=== PATIENT | male | born 1935 | race Caucasian/White ===

== ENCOUNTER 2017-05-12 10:56 | Observation (INO) | payer MEDICARE, OTHER ==
[2017-05-12] MEDS ORDERED: Sodium Chloride 0.9% 10 ML Syringe FLUSH PRN (11:06)
[2017-05-12] MEDS ORDERED: Temazepam 15 MG Cap PO PRN (11:06)
[2017-05-12 11:37] LABS: CHLORIDE,CL 105 mEq/L (98-106); SODIUM,NA 141 mEq/L (136-145)
[2017-05-12] MEDS ORDERED: LORazepam 0.5 MG Tab PO PRN (12:45)
[2017-05-12] MEDS: LEVODOPA PO SCH ×2 (14:00→19:39)
[2017-05-12] MEDS: CARBIDOPA PO SCH ×2 (14:00→19:39)
[2017-05-12] MEDS: cefTRIAXone 1 GM Vial IVPUSH SCH (17:26)
[2017-05-12] MEDS: MEMANTINE HCL 28 MG PO SCH (19:37)
[2017-05-12] MEDS: AMLODIPINE 5 MG PO SCH (19:38)
[2017-05-12] MEDS: MIRTAZAPINE 15 MG PO SCH (19:38)
[2017-05-12] MEDS: SIMVASTATIN 80 MG PO SCH (19:39)
[2017-05-12] MEDS: ALLOPURINOL 100 MG PO SCH (19:40)
[2017-05-12] MEDS: ACLIDINIUM BROMIDE INH SCH (19:42)
[2017-05-12] MEDS: BUDESONIDE INH SCH (19:43)
[2017-05-12] MEDS: FORMOTEROL INH SCH (19:43)
[2017-05-12] MEDS ORDERED: Formoterol/Mometasone 100-5 MCG 8.8 GM Inhaler IH SCH (20:00)
[2017-05-13] MEDS: PANTOPRAZOLE 40 MG PO SCH (06:51)
[2017-05-13] MEDS: ACLIDINIUM BROMIDE INH SCH ×2 (07:44→19:35)
[2017-05-13] MEDS: LOSARTAN 25 MG PO SCH (07:45)
[2017-05-13] MEDS: ASPIRIN 81 MG PO SCH (07:45)
[2017-05-13] MEDS: LEVODOPA PO SCH ×3 (07:46→19:37)
[2017-05-13] MEDS: DONEPEZIL 10 MG PO SCH (07:46)
[2017-05-13] MEDS: CARBIDOPA PO SCH ×3 (07:46→19:37)
[2017-05-13] MEDS: Multivitamin Tab PO SCH (07:56)
[2017-05-13] MEDS: Sodium Chloride 0.9% 1,000 ML IV SCH ×2 (08:30→22:17)
[2017-05-13] MEDS ORDERED: ACETAMINOPHEN 500 MG PO PRN (10:50)
--- NOTE | 2017-05-13 14:58 | PCM.PN ---
- General Info Date of Service: 05/13/17 Admission Dx/Problem (Free Text): Weakness UTI Functional Status: Reports: Tolerating Diet. Denies: Pain Controlled, Ambulating - Review of Systems General: Reports: Weakness, Fatigue, Malaise. Denies: Fever HEENT: Reports: No Symptoms Pulmonary: Denies: Shortness of Breath, Cough, Wheezing Cardiovascular: Denies: Chest Pain, Edema, Lightheadedness Gastrointestinal: Denies: Abdominal Pain, Nausea, Vomiting Genitourinary: Reports: Urgency, Incontinence Musculoskeletal: Reports: Other (weakness) Skin: Reports: No Symptoms Neurological: Reports: Weakness - Patient Data Vitals - Most Recent: Last Vital Signs Temp 98.2 F 05/13/17 12:00 Pulse 66 05/13/17 12:00 Resp 16 05/13/17 12:00 BP 122/44 L 05/13/17 12:00 Pulse Ox 95 05/13/17 12:00 Weight - Most Recent: 228 lb 3.2 oz Lab Results Last 24 Hours: Laboratory Results - last 24 hr 05/12/17 05/12/17 05/13/17 Range/Units 17:21 19:50 07:49 POC Glucose 208 H 199 H 170 H (75-105) mg/dl Brent Results Last 24 Hours: Microbiology 05/12/17 13:45 Urine Culture - Preliminary Urine, Voided Gram Negative Rods Med Orders - Current: Current Medications Acetaminophen (Tylenol Extra Strength) 1,000 mg PO Q6H PRN PRN Reason: Pain Allopurinol (Zyloprim) 100 mg PO BEDTIME [facility] Last Admin: 05/12/17 19:40 Dose: 100 mg Aspirin (Halfprin) 81 mg PO DAILY [facility] Last Admin: 05/13/17 07:45 Dose: 81 mg Carbidopa/Levodopa (Sinemet 25-100 Mg) 1 tab PO TID [facility] Last Admin: 05/13/17 14:32 Dose: 1 tab Ceftriaxone Sodium (Rocephin) 1 gm IVPUSH Q24H [facility] Last Admin: 05/12/17 17:26 Dose: 1 gm Sodium Chloride (Normal Saline) 1,000 mls @ 75 mls/hr IV ASDIRECTED [facility] Last Admin: 05/13/17 08:30 Dose: 75 mls/hr Lorazepam (Ativan) 0.5 mg PO BID PRN PRN Reason: Anxiety Losartan Potassium (Cozaar) 50 mg PO DAILY [facility] Last Admin: 05/13/17 07:45 Dose: 50 mg Mirtazapine (Remeron) 15 mg PO BEDTIME [facility] Last Admin: 05/12/17 19:38 Dose: 15 mg Multivitamins/Minerals/Vitamin C (Tab-A-Gela) 1 tab PO DAILY [facility] Last Admin: 05/13/17 07:56 Dose: 1 tab Ptom - Aclidinium Sunflower [Tudorza Pressair] 1 Puff 1 puff INH BID [facility] Last Admin: 05/13/17 07:44 Dose: 1 puff Ptom - Amlodipine 5 (Mg Tab) 5 each PO BEDTIME [facility] Last Admin: 05/12/17 19:38 Dose: 5 each Ptom - Donepezil 10 (Mg Tab) 10 each PO DAILY [facility] Last Admin: 05/13/17 07:46 Dose: 10 each Ptom - Budesonide /Formoterol 160 Mcg/4 .5mcg Inh 1 each INH BEDTIME [facility] Last Admin: 05/12/17 19:43 Dose: 1 each Ptom - Memantine Hcl ([Namenda Xr] 28 Mg) 28 mg PO BEDTIME [facility] Last Admin: 05/12/17 19:37 Dose: 28 mg Pantoprazole Sodium (Protonix) 40 mg PO ACBREAKFAST [facility] Last Admin: 05/13/17 06:51 Dose: 40 mg Simvastatin (Zocor) 80 mg PO BEDTIME [facility] Last Admin: 05/12/17 19:39 Dose: 80 mg Sodium Chloride (Saline Flush) 10 ml FLUSH ASDIRECTED PRN PRN Reason: Keep Vein Open Temazepam (Restoril) 15 mg PO BEDTIME PRN PRN Reason: Sleep Discontinued Medications Mometasone Furoate/Formoterol Fumar (Dulera 100-5 Mcg) 2 puff IH BID NAV - Exam General: Alert, Oriented (oriented to person and place), Cooperative HEENT: Mucous Membr. Moist/Protection Neck: Supple Lungs: Normal Respiratory Effort, Wheezing (fine wheezing noted) Cardiovascular: Regular Rate, Regular Rhythm GI/Abdominal Exam: Normal Bowel Sounds, Soft, Non-Tender Extremities: No Pedal Edema Skin: Warm, Dry Neurological: No New Focal Deficit - Problem List & Annotations (1) Weakness SNOMED Code(s): 94578611 Code(s): R53.1 - WEAKNESS Status: Acute Priority: High Current Visit: Yes (2) UTI (urinary tract infection) SNOMED Code(s): 64602779 Code(s): N39.0 - URINARY TRACT INFECTION, SITE NOT SPECIFIED Status: Acute Priority: High Current Visit: Yes Onset Date: ~01/26/16 Qualifiers: - Problem List Review Problem List Initiated/Reviewed/Updated: Yes - My Orders Last 24 Hours: My Active Orders 05/13/17 10:50 Acetaminophen [Tylenol Extra Strength] 1,000 mg PO Q6H PRN 05/14/17 05:11 BASIC METABOLIC PANEL,BMP [CHEM] AM - Assessment Assessment:: UTI Weakness - Plan Plan:: Patient states is feeling okay today. Denies shortness of breath or chest pain. Cardiac work up done on admit due to palpitations and weakness was negative. Was found to have UTI and started on Rocephin. Patient states he does have urgency and as a result is incontinent at times. Minimal cough. Afebrile. Oxygen sats are adequate. Creatinine was higher than his usual at 1.9. IV fluids started due to dehydration. Continue Rocephin. Tylenol for discomfort versus his tramadol at this time due to increase in creatinine. Possible discharge home on antibiotics tomorrow.
[2017-05-13] MEDS: cefTRIAXone 1 GM Vial IVPUSH SCH (16:53)
[2017-05-13] MEDS: BUDESONIDE INH SCH (19:36)
[2017-05-13] MEDS: FORMOTEROL INH SCH (19:36)
[2017-05-13] MEDS: AMLODIPINE 5 MG PO SCH (19:36)
[2017-05-13] MEDS: MEMANTINE HCL 28 MG PO SCH (19:36)
[2017-05-13] MEDS: MIRTAZAPINE 15 MG PO SCH (19:37)
[2017-05-13] MEDS: ALLOPURINOL 100 MG PO SCH (19:38)
[2017-05-13] MEDS: SIMVASTATIN 80 MG PO SCH (19:41)
[2017-05-14] MEDS: PANTOPRAZOLE 40 MG PO SCH (06:07)
[2017-05-14] MEDS: ACLIDINIUM BROMIDE INH SCH (07:36)
[2017-05-14] MEDS: ASPIRIN 81 MG PO SCH (07:37)
[2017-05-14] MEDS: LEVODOPA PO SCH (07:37)
[2017-05-14] MEDS: CARBIDOPA PO SCH (07:37)
[2017-05-14] MEDS: DONEPEZIL 10 MG PO SCH (07:37)
[2017-05-14] MEDS: LOSARTAN 25 MG PO SCH (07:39)
[2017-05-14] MEDS: Multivitamin Tab PO SCH (07:39)
[2017-05-14 07:42] VITALS: BP 139/36
--- NOTE | 2017-05-18 09:42 | PCM.DCSUM1 ---
Discharge Summary - Hospital Course Free Text/Narrative:: Patient admitted by Dr. Curry with palpitations and weakness. Had been seen by the home health nurse and was concerned about his pulse. Patient had an episode that felt like electricity going through his body. Was admitted to rule out any cardiac events and monitor telemetry. Initial labs showed a normal WBC at 7.7, hemoglobin at 15.5. Creatinine elevated from his norm at 1.9. Cardiac enzymes negative. UA was positive. Started on Rocephin and IV fluids. - Discharge Data Discharge Date: 05/14/17 Discharge Disposition: Home, Self-Care 01 Condition: Good - Discharge Diagnosis/Problem(s) (1) Weakness SNOMED Code(s): 24800131 ICD Code: R53.1 - WEAKNESS Status: Acute Priority: High (2) UTI (urinary tract infection) SNOMED Code(s): 18240172 ICD Code: N39.0 - URINARY TRACT INFECTION, SITE NOT SPECIFIED Status: Acute Priority: High Onset Date: ~01/26/16 Qualifiers: - Patient Summary/Data Complications: none Hospital Course: Patient did well during hospital stay. Cardiac enzymes remained negative. Creatinine improved to 1.5 after IV fluids. Feels stronger after IV fluids and antibiotics, ambulating with standby assist. Afebrile. Will discharge home on Ceftin. - Patient Instructions Diet: Diabetic Diet Activity: As Tolerated - Discharge Plan Prescriptions/Med Rec: Cefuroxime Axetil [Cefuroxime] 250 mg PO BID #20 tablet Home Medications: Home Meds Acetaminophen [Tylenol Extra Strength] 500 mg PO Q4H PRN 09/21/14 [History] Allopurinol [Zyloprim] 100 mg PO BEDTIME 09/21/14 [History] Donepezil HCl 10 mg PO DAILY 09/21/14 [History] LORazepam [Ativan] 0.5 mg PO BID PRN 09/21/14 [History] Simvastatin 80 mg PO BEDTIME 09/21/14 [History] Fluticasone Propionate [Flovent] 2 spray ASTER BEDTIME 09/18/15 [History] Sodium Chloride [Saline Nasal [place]] 1 spray ASTER ASDIRECTED PRN 09/18/15 [ History] amLODIPine [Norvasc] 5 mg PO BEDTIME 09/18/15 [History] Aspirin [Ecotrin] 81 mg PO DAILY #30 tablet. 09/20/15 [Rx] Pantoprazole [ProTONIX] 40 mg PO ACBREAKFAST #45 tab.cr 09/20/15 [Rx] Memantine HCl [Namenda Xr] 28 mg PO BEDTIME 02/02/16 [History] traMADol [Ultram] 50 mg PO Q6H #60 tablet 02/05/16 [Rx] Aclidinium [place] [Tudorza Pressair] 1 puff INH DAILY 05/12/17 [History] Budesonide/Formoterol Fumarate [Symbicort 160-4.5 Mcg Inhaler] 1 puff INH BID [History] Carbidopa/Levodopa [Carbidopa-Levo 25-100 MG ODT] 1 tab PO TID 05/12/17 [History ] Losartan [Cozaar] 50 mg PO DAILY 05/12/17 [History] Mirtazapine 15 mg PO BEDTIME 05/12/17 [History] Cefuroxime Axetil [Cefuroxime] 250 mg PO BID #20 tablet 05/14/17 [Rx] Patient Handouts: Urinary Tract Infection, Adult Referrals: Chance Curry MD [Primary Care Provider] - (Follow up with Dr. Curry in one week. CBC, BMP, A1C prior to visit) - Discharge Summary/Plan Comment DC Time >30 min.: No Discharge Summary/Plan Comment: Discharge home on Ceftin. Follow up with Dr. Curry in one week. - General Info Date of Service: 05/14/17 Admission Dx/Problem (Free Text: Weakness UTI Functional Status: Reports: Pain Controlled, Tolerating Diet, Ambulating - Review of Systems General: Reports: Fatigue. Denies: Fever, Weakness HEENT: Reports: No Symptoms Pulmonary: Denies: Shortness of Breath, Cough, Wheezing Cardiovascular: Denies: Chest Pain, Edema, Lightheadedness Gastrointestinal: Denies: Abdominal Pain, Nausea, Vomiting Genitourinary: Reports: No Symptoms Musculoskeletal: Reports: No Symptoms Skin: Reports: No Symptoms Neurological: Reports: Weakness - Patient Data Vitals - Most Recent: Last Vital Signs Temp 96.9 F 05/14/17 07:42 Pulse 63 05/14/17 07:42 Resp 20 05/14/17 07:42 BP 139/36 L 05/14/17 07:42 Pulse Ox 93 L 05/14/17 07:42 Weight - Most Recent: 228 lb 3.2 oz Med Orders - Current: Current Medications Discontinued Medications Acetaminophen (Tylenol Extra Strength) 1,000 mg PO Q6H PRN PRN Reason: Pain Last Admin: 05/13/17 11:30 Dose: 1,000 mg Allopurinol (Zyloprim) 100 mg PO BEDTIME [facility] Last Admin: 05/13/17 19:38 Dose: 100 mg Aspirin (Halfprin) 81 mg PO DAILY [facility] Last Admin: 05/14/17 07:37 Dose: 81 mg Carbidopa/Levodopa (Sinemet 25-100 Mg) 1 tab PO TID [facility] Last Admin: 05/14/17 07:37 Dose: 1 tab Ceftriaxone Sodium (Rocephin) 1 gm IVPUSH Q24H [facility] Last Admin: 05/13/17 16:53 Dose: 1 gm Sodium Chloride (Normal Saline) 1,000 mls @ 75 mls/hr IV ASDIRECTED [facility] Last Admin: 05/13/17 22:17 Dose: 75 mls/hr Lorazepam (Ativan) 0.5 mg PO BID PRN PRN Reason: Anxiety Losartan Potassium (Cozaar) 50 mg PO DAILY [facility] Last Admin: 05/14/17 07:39 Dose: 50 mg Mirtazapine (Remeron) 15 mg PO BEDTIME [facility] Last Admin: 05/13/17 19:37 Dose: 15 mg Mometasone Furoate/Formoterol Fumar (Dulera 100-5 Mcg) 2 puff IH BID [facility] Multivitamins/Minerals/Vitamin C (Tab-A-Gela) 1 tab PO DAILY [facility] Last Admin: 05/14/17 07:39 Dose: 1 tab Ptom - Aclidinium [place] [Tudorza Pressair] 1 Puff 1 puff INH BID [facility] Last Admin: 05/14/17 07:36 Dose: 1 puff Ptom - Amlodipine 5 (Mg Tab) 5 each PO BEDTIME [facility] Last Admin: 05/13/17 19:36 Dose: 5 each Ptom - Donepezil 10 (Mg Tab) 10 each PO DAILY [facility] Last Admin: 05/14/17 07:37 Dose: 10 each Ptom - Budesonide /Formoterol 160 Mcg/4 .5mcg Inh 1 each INH BEDTIME [facility] Last Admin: 01/17/18 19:36 Dose: 1 each Ptom - Memantine Hcl ([Namenda Xr] 28 Mg) 28 mg PO BEDTIME [facility] Last Admin: 05/13/17 19:36 Dose: 28 mg Pantoprazole Sodium (Protonix) 40 mg PO ACBREAKFAST [facility] Last Admin: 05/14/17 06:07 Dose: 40 mg Simvastatin (Zocor) 80 mg PO BEDTIME [facility] Last Admin: 05/13/17 19:41 Dose: 80 mg Sodium Chloride (Saline Flush) 10 ml FLUSH ASDIRECTED PRN PRN Reason: Keep Vein Open Temazepam (Restoril) 15 mg PO BEDTIME PRN PRN Reason: Sleep - Exam General: Reports: Alert, Oriented HEENT: Reports: Mucous Membr. Moist/[place] Neck: Reports: Supple Lungs: Reports: Clear to Auscultation, Normal Respiratory Effort Cardiovascular: Reports: Regular Rate, Regular Rhythm GI/Abdominal Exam: Normal Bowel Sounds, Soft, Non-Tender Extremities: Normal Inspection, No Pedal Edema Skin: Reports: Warm, Dry Neurological: Reports: No New Focal Deficit *Q Meaningful Use (DIS) - VTE *Q VTE Criteria *Q: - Stroke *Q Stroke Criteria *Q: - AMI *Q AMI Criteria *Q:
== END 2017-05-14 10:00 | disposition home or self-care (01) ==
LOC: CC.MS 10:56
PROVIDERS: ADMIT Family Medicine; ATTEND Family Medicine
DX: R53.1 Weakness (principal); N39.0 Urinary tract infection, site not specified; J44.9 Chronic obstructive pulmonary disease, unspecified; F32.9 Major depressive disorder, single episode, unspecified; K21.9 Gastro-esophageal reflux disease without esophagitis; I10 Essential (primary) hypertension; E78.5 Hyperlipidemia, unspecified; G47.33 Obstructive sleep apnea (adult) (pediatric); Z79.82 Long term (current) use of aspirin; Z79.899 Other long term (current) drug therapy; Z87.891 Personal history of nicotine dependence
CPT/HCPCS: 36415; 71046; 80048; 81001; 82962; 84484; 85025; 86140; 87086; 87088; 87186; 93005; A9270; J0696; J7030; 93010; 96361; 96374; 96375; 96376; 99217; 99220; 99225; G0378

== ENCOUNTER 2018-03-03 08:55 | Inpatient (IN) | payer MEDICARE, MEDICAID ==
[2018-03-03] MEDS ORDERED: Acetaminophen 325 MG Tab PO PRN (13:28)
[2018-03-03] MEDS ORDERED: Ondansetron 4 MG/2 ML SDV IV PRN (13:28)
[2018-03-03] MEDS ORDERED: Docusate Sodium 100 MG Cap PO PRN (13:28)
[2018-03-03] MEDS ORDERED: Ondansetron 4 MG Tab.DIS PO PRN (13:28)
[2018-03-03] MEDS ORDERED: LORazepam 0.5 MG Tab PO PRN (13:35)
[2018-03-03] MEDS ORDERED: traMADol 50 MG Tab PO PRN (13:35)
[2018-03-03] MEDS: Levofloxacin/Dextrose 5%-Water 500 MG in Premix Bag 1 BAG IV SCH (15:52)
[2018-03-03] MEDS: Enoxaparin 30 MG/0.3 ML Syringe SUBCUT SCH (15:56)
[2018-03-03] MEDS: Carbidopa/Levodopa 25-100 MG Tab PO SCH ×2 (16:21→20:16)
[2018-03-03] MEDS: Sodium Chloride 0.9% 1,000 ML IV SCH (16:42)
[2018-03-03] MEDS: Fluticasone Propionate Nasal Spray 16 GM Bottle NAS SCH (20:10)
[2018-03-03] MEDS: Formoterol/Mometasone 200-5 MCG 8.8 GM Inhaler IH SCH (20:11)
[2018-03-03] MEDS: Memantine 10 MG Tab PO SCH (20:12)
[2018-03-03] MEDS: Mirtazapine 15 MG Tab PO SCH (20:12)
[2018-03-03] MEDS: Simvastatin 40 MG Tab PO SCH (20:12)
[2018-03-03] MEDS: Insulin Glarg,Human.Rec.Analog 100 UNIT/ML ML SUBCUT SCH (20:23)
[2018-03-04] MEDS: Sodium Chloride 0.9% 1,000 ML IV SCH ×3 (02:41→23:26)
[2018-03-04] MEDS: Pantoprazole 40 MG Tab.CR PO SCH (06:36)
[2018-03-04] MEDS: Carbidopa/Levodopa 25-100 MG Tab PO SCH ×3 (07:40→19:43)
[2018-03-04] MEDS: Aspirin 81 MG Tab.EC PO SCH (07:40)
[2018-03-04] MEDS: Donepezil 5 MG Tab PO SCH (07:40)
[2018-03-04] MEDS: Formoterol/Mometasone 200-5 MCG 8.8 GM Inhaler IH SCH ×2 (07:41→19:41)
--- NOTE | 2018-03-04 07:46 | EDM.PDOC ---
ED HPI GENERAL MEDICAL PROBLEM - General Chief Complaint: General Stated Complaint: WEAK Time Seen by Provider: 03/03/18 09:25 Source of Information: Reports: Patient, Family History Limitations: Reports: No Limitations - History of Present Illness INITIAL COMMENTS - FREE TEXT/NARRATIVE: Humphrey is an 83 yo male who presents to the ED via [facility] d/t weakness. states he has been getting weak this last week and hasn't been able to walk much anymore. She states it is hard for her to get him up and help take care of him. He used to be able to ambulate with a walker at home but hasn' t been able to do this anymore. She states he is oxygen dependant at home. He was suppose to see Dr. Curry this morning in clinic but were unable to get him up and get him ready. He does have an indwelling catheter, which he has had for the last 9 months and usually will be changed monthly by home health. She admits it hasn't been changed this month yet. Duration: Getting Worse Location: Reports: Generalized - Related Data Allergies Allergy/AdvReac Type Severity Reaction Status Date / Time No Known Allergies Allergy Verified 03/03/18 09:00 Home Meds: Home Meds Acetaminophen [Tylenol Extra Strength] 500 mg PO Q4H PRN 09/21/14 [History] Donepezil HCl 10 mg PO BEDTIME 09/21/14 [History] LORazepam [Ativan] 0.5 mg PO Q6HR PRN 09/21/14 [History] Simvastatin 40 mg PO BEDTIME 09/21/14 [History] Fluticasone Propionate [Flovent] 2 spray SATER BEDTIME 09/18/15 [History] Aspirin [Ecotrin] 81 mg PO DAILY #30 tablet. 09/20/15 [Rx] Pantoprazole [ProTONIX] 40 mg PO ACBREAKFAST #45 tab.cr 09/20/15 [Rx] Memantine HCl [Namenda Xr] 28 mg PO BEDTIME 02/02/16 [History] Aclidinium [place] [Tudorza Pressair] 1 puff INH DAILY 05/12/17 [History] Budesonide/Formoterol Fumarate [Symbicort 160-4.5 Mcg Inhaler] 1 puff INH BID [History] Carbidopa/Levodopa [Carbidopa-Levo 25-100 MG ODT] 2 tab PO TID 05/12/17 [History ] Mirtazapine 15 mg PO BEDTIME 05/12/17 [History] Insulin Glarg,Human.Rec.Analog [Lantus] 25 unit SQ BEDTIME 06/26/17 [History] Allopurinol [Zyloprim] 100 mg PO DAILY 03/03/18 [History] Losartan Potassium 50 mg PO DAILY 03/03/18 [History] Multivitamin [Multivitamins] 1 tab PO DAILY 03/03/18 [History] Tamsulosin HCl 1 cap PO DAILY 03/03/18 [History] guaiFENesin [Guaifenesin] 3 tab PO DAILY 03/03/18 [History] traMADol [Ultram] 50 mg PO Q6H PRN 03/03/18 [History] Past Medical History HEENT History: Reports: Cataract, Hard of Hearing Cardiovascular History: Reports: Bypass, CAD, High Cholesterol, Hypertension, SOB on Exertion Other Cardiovascular History: Triple bypass in about 2009 Respiratory History: Reports: COPD, Sleep Apnea Other Respiratory History: Uses CPAP (no O2) at night; ANANT Genitourinary History: Reports: Retention, Urinary, Urinary Incontinence, Other (See Below) Other Genitourinary History: overactive bladder. Musculoskeletal History: Reports: Arthritis, Gout, Other (See Below) Other Musculoskeletal History: Joint pain and gout (per clinic records) Neurological History: Reports: Alzheimers Disease, Parkinson's Psychiatric History: Reports: Anxiety, Dementia Other Psychiatric History: h/o anxiety and dementia (per clinic records) Oncologic (Cancer) History: Reports: Prostate - Past Surgical History HEENT Surgical History: Reports: Cataract Surgery, Tonsillectomy Cardiovascular Surgical History: Reports: Coronary Artery Bypass GI Surgical History: Reports: Colonoscopy Other GI Surgeries/Procedures: Colonoscopy in 2010 Social & Family History - Family History Family Medical History: Noncontributory - Tobacco Use Smoking Status *Q: Current Every Day Smoker Years of Tobacco use: 75 Packs/Tins Daily: 0.1 - Caffeine Use Caffeine Use: Reports: None - Recreational Drug Use Recreational Drug Use: No ED ROS GENERAL - Review of Systems Review Of Systems: See Below Constitutional: Reports: Weakness, Fatigue. Denies: Fever, Chills, Weight Loss HEENT: Reports: No Symptoms Respiratory: Reports: Shortness of Breath (chronic). Denies: Wheezing, Cough Cardiovascular: Reports: Dyspnea on Exertion. Denies: Chest Pain, Palpitations , Syncope GI/Abdominal: Reports: Constipation. Denies: Abdominal Pain, Diarrhea, Nausea, Vomiting : Reports: No Symptoms (indwelling catheter) Skin: Reports: No Symptoms Neurological: Reports: Confusion, Difficulty Walking, Weakness. Denies: Headache, Numbness, Syncope, Tingling ED EXAM, GENERAL - Physical Exam Exam: See Below Exam Limited By: No Limitations General Appearance: Alert, Other (strong foul urine odor upon entering room) Eye Exam: Bilateral Eye: EOMI, PERRL Ears: Normal External Exam, Normal Canal, Hearing Grossly Normal, Normal TMs Nose: Normal Inspection, Normal Mucosa, No Blood Throat/Mouth: Normal Inspection, Normal Lips, Normal Gums, Normal Oropharynx, Normal Voice, No Airway Compromise Head: Atraumatic, Normocephalic Neck: Normal Inspection, Supple Respiratory/Chest: Decreased Breath Sounds. No: Respiratory Distress, Crackles , Rales, Rhonchi, Wheezing Cardiovascular: Regular Rate, Rhythm, No Edema, No Murmur GI/Abdominal: Normal Bowel Sounds, Soft, Non-Tender, No Organomegaly, No Mass (Male) Exam: Other (indwelling catheter) Extremities: Normal Inspection, No Pedal Edema Neurological: Alert, Oriented, Normal Cognition, No Motor/Sensory Deficits Psychiatric: Normal Affect, Normal Mood Skin Exam: Warm, Dry, Intact, Normal Color, No Rash EKG INTERPRETATION EKG Date: 03/03/18 Rhythm: NSR Comparison: No Change Course - Vital Signs Last Recorded V/S: Last Vital Signs Temp 96.2 F 03/04/18 07:25 Pulse 57 L 03/04/18 07:25 Resp 20 03/04/18 07:25 BP 121/50 L 03/04/18 07:25 Pulse Ox 98 03/04/18 07:25 - Orders/Labs/Meds Orders: Active Orders 24 hr Category Date Time Status Chest 1V Frontal [CR] Stat Exams 03/03/18 09:02 Taken CULTURE URINE [RM] Stat Lab 03/03/18 11:45 Received Medication Orders Acetaminophen (Tylenol) 650 mg PO Q4H PRN PRN Reason: Pain (Mild 1-3)/fever Aspirin (Halfprin) 81 mg PO DAILY [facility] Carbidopa/Levodopa (Sinemet 25-100 Mg) 2 tab PO TID [facility] Last Admin: 03/03/18 20:16 Dose: 2 tab Admin: 03/03/18 16:21 Dose: 2 tab Docusate Sodium (Colace) 100 mg PO BID PRN PRN Reason: Constipation Donepezil HCl (Aricept) 10 mg PO DAILY [facility] Enoxaparin Sodium (Lovenox) 30 mg SUBCUT DAILY@1600 [facility] Last Admin: 03/03/18 15:56 Dose: 30 mg Fluticasone Propionate (Flonase) 0 gm ASTER BEDTIME [facility] Last Admin: 03/03/18 20:10 Dose: 2 sprays Levofloxacin/Dextrose 500 mg/ (Premix) 100 mls @ 100 mls/hr IV DAILY@1600 [facility] Last Admin: 03/03/18 15:52 Dose: 100 mls/hr Sodium Chloride (Normal Saline) 1,000 mls @ 100 mls/hr IV ASDIRECTED [facility] Last Admin: 03/04/18 02:41 Dose: 100 mls/hr Infusion: 03/04/18 02:41 Dose: 100 mls/hr Admin: 03/03/18 16:42 Dose: 100 mls/hr Insulin Glargine (Lantus) 25 unit SUBCUT BEDTIME [facility] Last Admin: 03/03/18 20:23 Dose: 25 units Lorazepam (Ativan) 0.5 mg PO BID PRN PRN Reason: Anxiety Memantine (Namenda) 30 mg PO BEDTIME [facility] Last Admin: 03/03/18 20:12 Dose: 30 mg Mirtazapine (Remeron) 15 mg PO BEDTIME [facility] Last Admin: 03/03/18 20:12 Dose: 15 mg Mometasone Furoate/Formoterol Fumar (Dulera 200-5 Mcg) 1 puff IH BID [facility] Last Admin: 03/03/18 20:11 Dose: 1 puff Non-Formulary Medication (Aclidinium [place] [Tudorza Pressair]) 1 puff INH DAILY [facility] Ondansetron HCl (Zofran Odt) 4 mg PO Q4H PRN PRN Reason: nausea, able to take PO Ondansetron HCl (Zofran) 4 mg IV Q4H PRN PRN Reason: Nausea/Vomiting Pantoprazole Sodium (Protonix) 40 mg PO ACBREAKFAST [facility] Last Admin: 03/04/18 06:36 Dose: 40 mg Simvastatin (Zocor) 40 mg PO BEDTIME [facility] Last Admin: 03/03/18 20:12 Dose: 40 mg Tramadol HCl (Ultram) 50 mg PO Q6H PRN PRN Reason: Pain Labs: Laboratory Tests 03/03/18 03/03/18 03/03/18 Range/Units 09:10 09:10 11:45 WBC 8.3 (5.0-10.0) 10^3/uL RBC 4.88 (4.50-6.00) 10^6/uL Hgb 14.2 (14.0-18.0) g/dL Hct 44.5 (40.0-54.0) % MCV 91.2 (82.0-94.0) fL MCH 29.1 (27.0-32.0) pg MCHC 31.9 L (33.0-38.0) g/dL RDW Coeff of Bharathi 14.1 (11.0-15.0) % Plt Count 197 (150-400) 10^3/uL Neut % (Auto) 66.5 (35-85) % Lymph % (Auto) 25.5 (10-55) % Clark % (Auto) 6.6 (0-16) % Eos % (Auto) 1.2 (0-5) % Baso % (Auto) 0.2 (0-3) % Neut # (Auto) 5.51 (1.80-7.00) 10^3/uL Lymph # (Auto) 2.12 (1.00-4.80) 10^3/uL Clark # (Auto) 0.55 (0.00-0.80) 10^3/uL Eos # (Auto) 0.10 (0.00-0.45) 10^3/uL Baso # (Auto) 0.02 10^3/uL Sodium 143 (136-145) mEq/L Potassium 4.1 (3.5-5.0) mEq/L Chloride 107 H (98-106) mEq/L Carbon Dioxide 29 (21-32) mmol/L BUN 34 H (7-18) mg/dL Creatinine 1.9 H (0.7-1.3) mg/dL Est Cr Clr Drug Dosing 29.46 mL/min Estimated GFR (MDRD) 34 L (>=60) mL/min Glucose 168 H D (75-99) mg/dL Calcium 9.3 (8.4-10.1) mg/dL Total Bilirubin 0.5 (0.0-1.0) mg/dL AST 22 (15-37) U/L ALT 12 (12-78) U/L Alkaline Phosphatase 66 (46-116) U/L Creatine Kinase 71 (35-232) U/L Troponin I 0.402 H (0.00-0.06) ng/mL C-Reactive Protein 1.5 H (0.2-0.8) mg/dL Total Protein 6.5 (6.4-8.2) g/dL Albumin 3.3 L (3.4-5.0) g/dL Urine Color Yellow (YELLOW) Urine Appearance Slightly cloudy (CLEAR) Urine pH 6.0 (4.5-8.0) Ur Specific [place] >= 1.030 H (1.003-1.020) Urine Protein >=300 H (NEGATIVE) mg/dL Urine Glucose (UA) Negative (NEGATIVE) mg/dL Urine Ketones Negative (NEGATIVE) mg/dL Urine Occult Blood Moderate H (NEGATIVE) Urine Nitrite Negative (NEGATIVE) Urine Bilirubin Negative (NEGATIVE) Urine Urobilinogen 0.2 (0.2-1.0) EU/dL Ur Leukocyte Esterase Small H (NEGATIVE) Urine RBC 20-30 H (0-5) /HPF Urine WBC >100 H (0-5) /HPF Urine WBC Clumps Moderate H (NOT SEEN) /HPF Ur Epithelial Cells Occasional H (NOT SEEN) /HPF Urine Bacteria Moderate H (NOT SEEN) /HPF Meds: Medications Generic Name Dose Route Start Last Admin Trade Name Freq PRN Reason Stop Dose Admin Acetaminophen 650 mg 03/03/18 13:28 Tylenol PO Q4H PRN Pain (Mild 1-3)/fever Aspirin 81 mg 03/04/18 08:00 Halfprin PO DAILY [facility] Carbidopa/Levodopa 2 tab 03/03/18 14:00 03/03/18 20:16 Sinemet 25-100 Mg PO 2 tab TID [facility] Administration Docusate Sodium 100 mg 03/03/18 13:28 Colace PO BID PRN Constipation Donepezil HCl 10 mg 03/04/18 08:00 Aricept PO DAILY [facility] Enoxaparin Sodium 30 mg 03/03/18 16:00 03/03/18 15:56 Lovenox SUBCUT 30 mg DAILY@1600 [facility] Administration Fluticasone Propionate 0 gm 03/03/18 20:00 03/03/18 20:10 Flonase ASTER 2 sprays BEDTIME [facility] Administration Levofloxacin/Dextrose 500 mg/ 100 mls @ 100 mls/hr 03/03/18 16:00 03/03/18 15 :52 Premix IV 100 mls/hr DAILY@1600 [facility] Administration Sodium Chloride 1,000 mls @ 100 mls/hr 03/03/18 13:30 03/04/18 02:41 Normal Saline IV 100 mls/hr ASDIRECTED [facility] Administration Insulin Glargine 25 unit 03/03/18 20:00 03/03/18 20:23 Lantus SUBCUT 25 units BEDTIME [facility] Administration Lorazepam 0.5 mg 03/03/18 13:35 Ativan PO BID PRN Anxiety Memantine 30 mg 03/03/18 20:00 03/03/18 20:12 Namenda PO 30 mg BEDTIME [facility] Administration Mirtazapine 15 mg 03/03/18 20:00 03/03/18 20:12 Remeron PO 15 mg BEDTIME [facility] Administration Mometasone Furoate/Formoterol Fumar 1 puff 03/03/18 20:00 03/03/18 20:11 Dulera 200-5 Mcg IH 1 puff BID [facility] Administration Non-Formulary Medication 1 puff 03/04/18 08:00 Aclidinium [place] [Tudorza Pressair] INH DAILY [facility] Ondansetron HCl 4 mg 03/03/18 13:28 Zofran Odt PO Q4H PRN nausea, able to take PO Ondansetron HCl 4 mg 03/03/18 13:28 Zofran IV Q4H PRN Nausea/Vomiting Pantoprazole Sodium 40 mg 03/04/18 07:00 03/04/18 06:36 Protonix PO 40 mg ACBREAKFAST [facility] Administration Simvastatin 40 mg 03/03/18 20:00 03/03/18 20:12 Zocor PO 40 mg BEDTIME [facility] Administration Tramadol HCl 50 mg 03/03/18 13:35 Ultram PO Q6H PRN Pain Departure - Departure Time of Disposition: 12:30 Disposition: Admitted As Inpatient 66 Clinical Impression: Palliative care patient UTI (urinary tract infection) Qualifiers: Urinary tract infection type: acute cystitis Hematuria presence: with hematuria Qualified Code(s): N30.01 - Acute cystitis with hematuria - Discharge Information - Problem List & Annotations (1) UTI (urinary tract infection) SNOMED Code(s): 85366555 Code(s): N39.0 - URINARY TRACT INFECTION, SITE NOT SPECIFIED Status: Acute Current Visit: Yes Qualifiers: Urinary tract infection type: acute cystitis Hematuria presence: with hematuria Qualified Code(s): N30.01 - Acute cystitis with hematuria (2) Palliative care patient SNOMED Code(s): 756095227 Code(s): Z51.5 - ENCOUNTER FOR PALLIATIVE CARE Status: Acute Current Visit: Yes - My Orders Last 24 Hours: My Active Orders 03/03/18 09:02 Chest 1V Frontal [CR] Stat 03/03/18 11:45 CULTURE URINE [RM] Stat - Assessment/Plan Admission H&P: Please use this note as an admission H&P Last 24 Hours: My Active Orders 03/03/18 09:02 Chest 1V Frontal [CR] Stat 03/03/18 11:45 CULTURE URINE [RM] Stat Plan: Labs confirmed UTI. Chest x-ray stable. Will admit to Dr. Curry's services under acute care. Patient has multiple co-morbidities to include dementia and COPD. Patient under palliative care. Dr. Curry consulted in regards to Humphrey's condition and agrees with admission.
[2018-03-04] MEDS ORDERED: ACLIDINIUM BROMIDE INH SCH (08:00)
[2018-03-04] MEDS: Levofloxacin/Dextrose 5%-Water 500 MG in Premix Bag 1 BAG IV SCH (16:10)
[2018-03-04] MEDS: Enoxaparin 30 MG/0.3 ML Syringe SUBCUT SCH (16:10)
[2018-03-04] MEDS: Fluticasone Propionate Nasal Spray 16 GM Bottle NAS SCH (19:40)
[2018-03-04] MEDS: Memantine 10 MG Tab PO SCH (19:42)
[2018-03-04] MEDS: Mirtazapine 15 MG Tab PO SCH (19:43)
[2018-03-04] MEDS: Simvastatin 40 MG Tab PO SCH (19:43)
[2018-03-04] MEDS: Insulin Glarg,Human.Rec.Analog 100 UNIT/ML ML SUBCUT SCH (20:49)
--- NOTE | 2018-03-04 21:38 | PCM.PN ---
- General Info Date of Service: 03/04/18 Admission Dx/Problem (Free Text): UTI Weakness Functional Status: Reports: Pain Controlled, Tolerating Diet. Denies: Ambulating - Review of Systems General: Reports: Weakness, Fatigue. Denies: Fever HEENT: Reports: No Symptoms Pulmonary: Denies: Shortness of Breath, Cough Cardiovascular: Denies: Chest Pain, Edema Gastrointestinal: Denies: Abdominal Pain, Nausea, Vomiting Genitourinary: Reports: Other (mason cath patent) Musculoskeletal: Reports: No Symptoms Skin: Reports: No Symptoms Neurological: Reports: Confusion, Weakness - Patient Data Vitals - Most Recent: Last Vital Signs Temp 98.5 F 03/04/18 19:34 Pulse 66 03/04/18 19:34 Resp 20 03/04/18 19:34 BP 123/51 L 03/04/18 19:34 Pulse Ox 93 L 03/04/18 19:34 Weight - Most Recent: 222 lb 11.2 oz I&O - Last 24 Hours: Intake & Output 03/04/18 03/04/18 03/04/18 06:59 14:59 22:59 Intake Total 1798 1565 250 Output Total 550 900 Balance 1248 1565 -650 Lab Results Last 24 Hours: Laboratory Results - last 24 hr 03/04/18 03/04/18 03/04/18 Range/Units 07:00 07:00 07:22 WBC 7.2 (5.0-10.0) 10^3/uL RBC 4.60 (4.50-6.00) 10^6/uL Hgb 13.4 L (14.0-18.0) g/dL Hct 42.2 (40.0-54.0) % MCV 91.7 (82.0-94.0) fL MCH 29.1 (27.0-32.0) pg MCHC 31.8 L (33.0-38.0) g/dL RDW Coeff of Bharathi 14.0 (11.0-15.0) % Plt Count 175 (150-400) 10^3/uL Neut % (Auto) 51.7 (35-85) % Lymph % (Auto) 37.0 (10-55) % Robertson % (Auto) 7.8 (0-16) % Eos % (Auto) 3.1 (0-5) % Baso % (Auto) 0.4 (0-3) % Neut # (Auto) 3.71 (1.80-7.00) 10^3/uL Lymph # (Auto) 2.66 (1.00-4.80) 10^3/uL Robertson # (Auto) 0.56 (0.00-0.80) 10^3/uL Eos # (Auto) 0.22 (0.00-0.45) 10^3/uL Baso # (Auto) 0.03 10^3/uL Sodium 143 (136-145) mEq/L Potassium 4.6 (3.5-5.0) mEq/L Chloride 106 (98-106) mEq/L Carbon Dioxide 28 (21-32) mmol/L BUN 32 H (7-18) mg/dL Creatinine 1.8 H (0.7-1.3) mg/dL Est Cr Clr Drug Dosing 31.09 mL/min Estimated GFR (MDRD) 36 L (>=60) mL/min Glucose 144 H (75-99) mg/dL POC Glucose 146 H (75-105) mg/dl Calcium 8.7 (8.4-10.1) mg/dL Creatine Kinase 48 (35-232) U/L Troponin I 0.306 H (0.00-0.06) ng/mL C-Reactive Protein 2.4 H (0.2-0.8) mg/dL 03/04/18 Range/Units 20:34 WBC (5.0-10.0) 10^3/uL RBC (4.50-6.00) 10^6/uL Hgb (14.0-18.0) g/dL Hct (40.0-54.0) % MCV (82.0-94.0) fL MCH (27.0-32.0) pg MCHC (33.0-38.0) g/dL RDW Coeff of Bharathi (11.0-15.0) % Plt Count (150-400) 10^3/uL Neut % (Auto) (35-85) % Lymph % (Auto) (10-55) % Robertson % (Auto) (0-16) % Eos % (Auto) (0-5) % Baso % (Auto) (0-3) % Neut # (Auto) (1.80-7.00) 10^3/uL Lymph # (Auto) (1.00-4.80) 10^3/uL Robertson # (Auto) (0.00-0.80) 10^3/uL Eos # (Auto) (0.00-0.45) 10^3/uL Baso # (Auto) 10^3/uL Sodium (136-145) mEq/L Potassium (3.5-5.0) mEq/L Chloride (98-106) mEq/L Carbon Dioxide (21-32) mmol/L BUN (7-18) mg/dL Creatinine (0.7-1.3) mg/dL Est Cr Clr Drug Dosing mL/min Estimated GFR (MDRD) (>=60) mL/min Glucose (75-99) mg/dL POC Glucose 170 H (75-105) mg/dl Calcium (8.4-10.1) mg/dL Creatine Kinase (35-232) U/L Troponin I (0.00-0.06) ng/mL C-Reactive Protein (0.2-0.8) mg/dL Brent Results Last 24 Hours: Microbiology 03/03/18 14:10 Aerobic Blood Culture - Preliminary Blood - Venous NO GROWTH AFTER 1 DAY Anaerobic Blood Culture - Preliminary NO GROWTH AFTER 1 DAY 03/03/18 14:15 Aerobic Blood Culture - Preliminary Blood - Venous - Lab Draw NO GROWTH AFTER 1 DAY Anaerobic Blood Culture - Preliminary NO GROWTH AFTER 1 DAY 03/03/18 11:45 Urine Culture - Preliminary Urine, Catheterized Gram Negative Rods Gram Negative Rods#2 Med Orders - Current: Current Medications Acetaminophen (Tylenol) 650 mg PO Q4H PRN PRN Reason: Pain (Mild 1-3)/fever Aspirin (Halfprin) 81 mg PO DAILY [facility] Last Admin: 03/04/18 07:40 Dose: 81 mg Carbidopa/Levodopa (Sinemet 25-100 Mg) 2 tab PO TID [facility] Last Admin: 03/04/18 19:43 Dose: 2 tab Docusate Sodium (Colace) 100 mg PO BID PRN PRN Reason: Constipation Donepezil HCl (Aricept) 10 mg PO DAILY [facility] Last Admin: 03/04/18 07:40 Dose: 10 mg Enoxaparin Sodium (Lovenox) 30 mg SUBCUT DAILY@1600 [facility] Last Admin: 03/04/18 16:10 Dose: 30 mg Fluticasone Propionate (Flonase) 0 gm ASTER BEDTIME [facility] Last Admin: 03/04/18 19:40 Dose: 2 sprays Levofloxacin/Dextrose 500 mg/ (Premix) 100 mls @ 100 mls/hr IV DAILY@1600 [facility] Last Admin: 03/04/18 16:10 Dose: 100 mls/hr Sodium Chloride (Normal Saline) 1,000 mls @ 100 mls/hr IV ASDIRECTED [facility] Last Admin: 03/04/18 13:08 Dose: 100 mls/hr Insulin Glargine (Lantus) 25 unit SUBCUT BEDTIME [facility] Last Admin: 03/04/18 20:49 Dose: 25 units Lorazepam (Ativan) 0.5 mg PO BID PRN PRN Reason: Anxiety Memantine (Namenda) 30 mg PO BEDTIME [facility] Last Admin: 03/04/18 19:42 Dose: 30 mg Mirtazapine (Remeron) 15 mg PO BEDTIME [facility] Last Admin: 03/04/18 19:43 Dose: 15 mg Mometasone Furoate/Formoterol Fumar (Dulera 200-5 Mcg) 1 puff IH BID [facility] Last Admin: 03/04/18 19:41 Dose: 1 puff Ondansetron HCl (Zofran Odt) 4 mg PO Q4H PRN PRN Reason: nausea, able to take PO Ondansetron HCl (Zofran) 4 mg IV Q4H PRN PRN Reason: Nausea/Vomiting Pantoprazole Sodium (Protonix) 40 mg PO ACBREAKFAST [facility] Last Admin: 03/04/18 06:36 Dose: 40 mg Simvastatin (Zocor) 40 mg PO BEDTIME [facility] Last Admin: 03/04/18 19:43 Dose: 40 mg Tramadol HCl (Ultram) 50 mg PO Q6H PRN PRN Reason: Pain Discontinued Medications Non-Formulary Medication (Aclidinium [place] [Tudorza Pressair]) 1 puff INH DAILY [facility] Last Admin: 03/04/18 18:07 Dose: Not Given - Exam Quality Assessment: Supplemental Oxygen General: Alert, Oriented (person and place) HEENT: Mucous Membr. Moist/[place] Neck: Supple Lungs: Clear to Auscultation, Normal Respiratory Effort Cardiovascular: Regular Rate, Regular Rhythm GI/Abdominal Exam: Normal Bowel Sounds, Soft, Non-Tender Extremities: Normal Inspection, No Pedal Edema Skin: Warm, Dry Neurological: No New Focal Deficit - Problem List & Annotations (1) Palliative care patient SNOMED Code(s): 294812613 Code(s): Z51.5 - ENCOUNTER FOR PALLIATIVE CARE Status: Acute Priority: High Current Visit: Yes (2) UTI (urinary tract infection) SNOMED Code(s): 66477208 Code(s): N39.0 - URINARY TRACT INFECTION, SITE NOT SPECIFIED Status: Acute Priority: High Current Visit: Yes Qualifiers: Urinary tract infection type: acute cystitis Hematuria presence: with hematuria Qualified Code(s): N30.01 - Acute cystitis with hematuria (3) Weakness SNOMED Code(s): 01667771 Code(s): R53.1 - WEAKNESS Status: Acute Priority: High Current Visit: No - Problem List Review Problem List Initiated/Reviewed/Updated: Yes - Assessment Assessment:: UTI Weakness Palliative Care - Plan Plan:: Patient denies any concerns today. Oriented to person and place. Staff reports were unable to transfer him with 2 assist to a bedside commode as legs very weak. Afebrile. relates that has been progressively getting more weak over the last week. Does have history of dementia but she relates that has been stable, more cooperative. Good appetite this am for breakfast. Labs note WBC of 7.2, CRP 2.4. Troponin improved today to 0.306. Blood cultures negative. Urine gram negative rods with 2 different organisms. Will continue with IV Rocephin. Repeat labs in am. Physical therapy for strengthening.
[2018-03-05] MEDS: Pantoprazole 40 MG Tab.CR PO SCH (06:00)
[2018-03-05] MEDS: Donepezil 5 MG Tab PO SCH (07:42)
[2018-03-05] MEDS: Aspirin 81 MG Tab.EC PO SCH (07:42)
[2018-03-05] MEDS: Carbidopa/Levodopa 25-100 MG Tab PO SCH ×3 (07:42→19:56)
[2018-03-05] MEDS: Formoterol/Mometasone 200-5 MCG 8.8 GM Inhaler IH SCH ×2 (07:42→19:55)
[2018-03-05] MEDS: Polyethylene Glycol 3350 Powder 17 GM Packet PO SCH (08:25)
--- NOTE | 2018-03-05 10:40 | PCM.PN ---
- General Info Date of Service: 03/05/18 Admission Dx/Problem (Free Text): UTI Weakness Functional Status: Reports: Pain Controlled, Tolerating Diet. Denies: Ambulating - Review of Systems General: Reports: Weakness, Fatigue HEENT: Reports: No Symptoms Pulmonary: Denies: Shortness of Breath, Cough Cardiovascular: Reports: Edema. Denies: Chest Pain, Lightheadedness Gastrointestinal: Denies: Abdominal Pain, Nausea, Vomiting Genitourinary: Reports: Other (mason cath intact.) Musculoskeletal: Reports: No Symptoms Skin: Reports: No Symptoms Neurological: Reports: Confusion - Patient Data Vitals - Most Recent: Last Vital Signs Temp 97.0 F 03/05/18 07:33 Pulse 56 L 03/05/18 07:33 Resp 20 03/05/18 07:33 BP 116/59 L 03/05/18 07:33 Pulse Ox 96 03/05/18 07:33 Weight - Most Recent: 222 lb 11.2 oz I&O - Last 24 Hours: Intake & Output 03/04/18 03/05/18 03/05/18 22:59 06:59 14:59 Intake Total 250 1200 Output Total 900 700 Balance -650 500 Lab Results Last 24 Hours: Laboratory Results - last 24 hr 03/04/18 03/05/18 03/05/18 Range/Units 20:34 07:00 07:00 WBC 7.2 (5.0-10.0) 10^3/uL RBC 4.38 L (4.50-6.00) 10^6/uL Hgb 12.7 L (14.0-18.0) g/dL Hct 39.6 L (40.0-54.0) % MCV 90.4 (82.0-94.0) fL MCH 29.0 (27.0-32.0) pg MCHC 32.1 L (33.0-38.0) g/dL RDW Coeff of Bharathi 13.8 (11.0-15.0) % Plt Count 160 (150-400) 10^3/uL Neut % (Auto) 57.4 (35-85) % Lymph % (Auto) 31.8 (10-55) % Day % (Auto) 7.7 (0-16) % Eos % (Auto) 2.4 (0-5) % Baso % (Auto) 0.7 (0-3) % Neut # (Auto) 4.12 (1.80-7.00) 10^3/uL Lymph # (Auto) 2.28 (1.00-4.80) 10^3/uL Day # (Auto) 0.55 (0.00-0.80) 10^3/uL Eos # (Auto) 0.17 (0.00-0.45) 10^3/uL Baso # (Auto) 0.05 10^3/uL Sodium 141 (136-145) mEq/L Potassium 4.3 (3.5-5.0) mEq/L Chloride 108 H (98-106) mEq/L Carbon Dioxide 24 (21-32) mmol/L BUN 25 H (7-18) mg/dL Creatinine 1.6 H (0.7-1.3) mg/dL Est Cr Clr Drug Dosing 34.98 mL/min Estimated GFR (MDRD) 41 L (>=60) mL/min Glucose 142 H (75-99) mg/dL POC Glucose 170 H (75-105) mg/dl Calcium 8.5 (8.4-10.1) mg/dL C-Reactive Protein 2.9 H (0.2-0.8) mg/dL 03/05/18 Range/Units 07:31 WBC (5.0-10.0) 10^3/uL RBC (4.50-6.00) 10^6/uL Hgb (14.0-18.0) g/dL Hct (40.0-54.0) % MCV (82.0-94.0) fL MCH (27.0-32.0) pg MCHC (33.0-38.0) g/dL RDW Coeff of Bharathi (11.0-15.0) % Plt Count (150-400) 10^3/uL Neut % (Auto) (35-85) % Lymph % (Auto) (10-55) % Day % (Auto) (0-16) % Eos % (Auto) (0-5) % Baso % (Auto) (0-3) % Neut # (Auto) (1.80-7.00) 10^3/uL Lymph # (Auto) (1.00-4.80) 10^3/uL Day # (Auto) (0.00-0.80) 10^3/uL Eos # (Auto) (0.00-0.45) 10^3/uL Baso # (Auto) 10^3/uL Sodium (136-145) mEq/L Potassium (3.5-5.0) mEq/L Chloride (98-106) mEq/L Carbon Dioxide (21-32) mmol/L BUN (7-18) mg/dL Creatinine (0.7-1.3) mg/dL Est Cr Clr Drug Dosing mL/min Estimated GFR (MDRD) (>=60) mL/min Glucose (75-99) mg/dL POC Glucose 131 H (75-105) mg/dl Calcium (8.4-10.1) mg/dL C-Reactive Protein (0.2-0.8) mg/dL Brent Results Last 24 Hours: Microbiology 03/03/18 11:45 Urine Culture - Preliminary Urine, Catheterized Providencia Rettgeri Gram Negative Rods#2 03/03/18 14:10 Aerobic Blood Culture - Preliminary Blood - Venous NO GROWTH AFTER 1 DAY Anaerobic Blood Culture - Preliminary NO GROWTH AFTER 1 DAY 03/03/18 14:15 Aerobic Blood Culture - Preliminary Blood - Venous - Lab Draw NO GROWTH AFTER 1 DAY Anaerobic Blood Culture - Preliminary NO GROWTH AFTER 1 DAY Med Orders - Current: Current Medications Acetaminophen (Tylenol) 650 mg PO Q4H PRN PRN Reason: Pain (Mild 1-3)/fever Aspirin (Halfprin) 81 mg PO DAILY [facility] Last Admin: 03/05/18 07:42 Dose: 81 mg Carbidopa/Levodopa (Sinemet 25-100 Mg) 2 tab PO TID [facility] Last Admin: 03/05/18 07:42 Dose: 2 tab Docusate Sodium (Colace) 100 mg PO BID PRN PRN Reason: Constipation Donepezil HCl (Aricept) 10 mg PO DAILY [facility] Last Admin: 03/05/18 07:42 Dose: 10 mg Enoxaparin Sodium (Lovenox) 30 mg SUBCUT DAILY@1600 [facility] Last Admin: 03/04/18 16:10 Dose: 30 mg Fluticasone Propionate (Flonase) 0 gm ASTER BEDTIME [facility] Last Admin: 03/04/18 19:40 Dose: 2 sprays Levofloxacin/Dextrose 500 mg/ (Premix) 100 mls @ 100 mls/hr IV DAILY@1600 [facility] Last Admin: 03/04/18 16:10 Dose: 100 mls/hr Insulin Glargine (Lantus) 25 unit SUBCUT BEDTIME [facility] Last Admin: 03/04/18 20:49 Dose: 25 units Lorazepam (Ativan) 0.5 mg PO BID PRN PRN Reason: Anxiety Memantine (Namenda) 30 mg PO BEDTIME [facility] Last Admin: 03/04/18 19:42 Dose: 30 mg Mirtazapine (Remeron) 15 mg PO BEDTIME [facility] Last Admin: 03/04/18 19:43 Dose: 15 mg Mometasone Furoate/Formoterol Fumar (Dulera 200-5 Mcg) 1 puff IH BID [facility] Last Admin: 03/05/18 07:42 Dose: 1 puff Ondansetron HCl (Zofran Odt) 4 mg PO Q4H PRN PRN Reason: nausea, able to take PO Ondansetron HCl (Zofran) 4 mg IV Q4H PRN PRN Reason: Nausea/Vomiting Pantoprazole Sodium (Protonix) 40 mg PO ACBREAKFAST [facility] Last Admin: 03/05/18 06:00 Dose: 40 mg Polyethylene Glycol (Miralax) 17 gm PO DAILY [facility] Last Admin: 03/05/18 08:25 Dose: 17 gm Simvastatin (Zocor) 40 mg PO BEDTIME [facility] Last Admin: 03/04/18 19:43 Dose: 40 mg Tiotropium [place] (Spiriva Handihaler) 18 mcg INH DAILY [facility] Tramadol HCl (Ultram) 50 mg PO Q6H PRN PRN Reason: Pain Discontinued Medications Sodium Chloride (Normal Saline) 1,000 mls @ 100 mls/hr IV ASDIRECTED [facility] Last Admin: 03/04/18 23:26 Dose: 100 mls/hr Non-Formulary Medication (Aclidinium [place] [Tudorza Pressair]) 1 puff INH DAILY [facility] Last Admin: 03/04/18 18:07 Dose: Not Given - Exam Quality Assessment: Supplemental Oxygen General: Alert, Oriented (person and place) HEENT: Mucous Membr. Moist/[place] Neck: Supple Lungs: Clear to Auscultation, Normal Respiratory Effort Cardiovascular: Regular Rate, Regular Rhythm GI/Abdominal Exam: Normal Bowel Sounds, Soft, Non-Tender Extremities: Normal Inspection, Pedal Edema (trace of pitting edema) Skin: Warm, Dry Neurological: No New Focal Deficit - Problem List & Annotations (1) Palliative care patient SNOMED Code(s): 157819647 Code(s): Z51.5 - ENCOUNTER FOR PALLIATIVE CARE Status: Acute Priority: High Current Visit: Yes (2) UTI (urinary tract infection) SNOMED Code(s): 48658132 Code(s): N39.0 - URINARY TRACT INFECTION, SITE NOT SPECIFIED Status: Acute Priority: High Current Visit: Yes Qualifiers: Urinary tract infection type: acute cystitis Hematuria presence: with hematuria Qualified Code(s): N30.01 - Acute cystitis with hematuria (3) Weakness SNOMED Code(s): 31451580 Code(s): R53.1 - WEAKNESS Status: Acute Priority: High Current Visit: No - Problem List Review Problem List Initiated/Reviewed/Updated: Yes - My Orders Last 24 Hours: My Active Orders 03/05/18 08:15 Polyethylene Glycol 3350 [MiraLAX] 17 gm PO DAILY 03/06/18 09:00 Tiotropium [Spiriva HandiHaler] 18 mcg INH DAILY - Assessment Assessment:: UTI Weakness Palliative Care - Plan Plan:: Patient denies any concerns today. Oriented to person and place. Staff reports were unable to transfer him with 2 assist to a bedside commode as legs very weak. Afebrile. relates that has been progressively getting more weak over the last week. Does have history of dementia but she relates that has been stable, more cooperative. Good appetite this am for breakfast. Labs note WBC of 7.2, CRP 2.4. Troponin improved today to 0.306. Blood cultures negative. Urine gram negative rods with 2 different organisms. Will continue with IV Rocephin. Repeat labs in am. Physical therapy for strengthening. 03-05-2018 Patient up and alert, conversing. Denies complaints today. No shortness of breath or chest discomfort. Do note trace of edema today. Appetite is good, taking fluids well. Labs noted normal 7.2, hemoglobin 12.7. Creatinine improved to 1.6. CRP 2.9. Urine culture does identify one organism today as Providencia Rettgeri, sensitive to Levaquin. Blood cultures negative Will stop IV fluids. Continue Levaquin, await identification of second organism. Continue with PT. Probable transfer to swing bed tomorrow.
[2018-03-05] MEDS: Levofloxacin/Dextrose 5%-Water 500 MG in Premix Bag 1 BAG IV SCH (15:56)
[2018-03-05] MEDS: Enoxaparin 30 MG/0.3 ML Syringe SUBCUT SCH (15:57)
[2018-03-05] MEDS: Insulin Glarg,Human.Rec.Analog 100 UNIT/ML ML SUBCUT SCH (19:53)
[2018-03-05] MEDS: Fluticasone Propionate Nasal Spray 16 GM Bottle NAS SCH (19:55)
[2018-03-05] MEDS: Memantine 10 MG Tab PO SCH (19:56)
[2018-03-05] MEDS: Mirtazapine 15 MG Tab PO SCH (19:58)
[2018-03-05] MEDS: Simvastatin 40 MG Tab PO SCH (19:58)
[2018-03-06] MEDS: Pantoprazole 40 MG Tab.CR PO SCH (07:25)
[2018-03-06 07:48] VITALS: BP 118/53
[2018-03-06] MEDS: Aspirin 81 MG Tab.EC PO SCH (07:52)
[2018-03-06] MEDS: Formoterol/Mometasone 200-5 MCG 8.8 GM Inhaler IH SCH (07:52)
[2018-03-06] MEDS: Polyethylene Glycol 3350 Powder 17 GM Packet PO SCH (07:52)
[2018-03-06] MEDS: Carbidopa/Levodopa 25-100 MG Tab PO SCH (07:52)
[2018-03-06] MEDS: Donepezil 5 MG Tab PO SCH (07:52)
[2018-03-06] MEDS ORDERED: Tiotropium Inhaler 18 MCG Inhalation Powder Cap Kit of 5 INH SCH (09:00)
--- NOTE | 2018-03-07 17:23 | PCM.DCSUM1 ---
Discharge Summary - Hospital Course Free Text/Narrative:: Humphrey presented to the ER per EMS due to increased weakness. relates over the last 4-5 days, unable to ambulate or transfer well. Does have chronic weakness but typically is able to go short distances with walker. As of late, unable to get him up and care for him. He is oxygen dependent, no change in breathing or increased shortness of breath. Does have chronic indwelling catheter, noted it had darker urine as of late and due to cath change. ER work up did indicate a UTI. Admitted for IV antibiotics and Physical Therapy. WBC stable, CRP only mildly elevated. Diagnosis: Stroke: No Modified [place] Scale: No Symptoms at All Modified [place] Scale Score: 0 - Discharge Data Discharge Date: 03/06/18 Discharge Disposition: DC/Tfer W/I Hosp To Swing 61 Condition: Fair - Discharge Diagnosis/Problem(s) (1) Palliative care patient SNOMED Code(s): 691103107 ICD Code: Z51.5 - ENCOUNTER FOR PALLIATIVE CARE Status: Acute Priority: High (2) UTI (urinary tract infection) SNOMED Code(s): 07592042 ICD Code: N39.0 - URINARY TRACT INFECTION, SITE NOT SPECIFIED Status: Acute Priority: High Qualifiers: Urinary tract infection type: acute cystitis Hematuria presence: with hematuria Qualified Code(s): N30.01 - Acute cystitis with hematuria (3) Weakness SNOMED Code(s): 24590945 ICD Code: R53.1 - WEAKNESS Status: Acute Priority: High - Patient Summary/Data Complications: none Consults: Consultations 03/03/18 13:46 Consult to Case Management/Cardiology Manager [CONS] Routine 03/03/18 19:47 Consult to Physical Therapy [PT Evaluation and Treatment] [CONS] Routine Hospital Course: Patient has had overall improvement. Is able to transfer well now with staff. Catheter changed as noted UTI. Urine culture did grow out providencia Rettgeri and Citerobacter Sedlakii, both sensitive to Levaquin that he has been on since admission. Labs have remained stable. WBC normal, CRP peaked at 2.9. Appetite has been good. Blood sugars running 130s to 230s. No chest pain, shortness of breath or abdominal pain. - Discharge Plan Home Medications: Home Meds Acetaminophen [Tylenol Extra Strength] 500 mg PO Q4H PRN 09/21/14 [History] Donepezil HCl 10 mg PO BEDTIME 09/21/14 [History] LORazepam [Ativan] 0.5 mg PO Q6HR PRN 09/21/14 [History] Simvastatin 40 mg PO BEDTIME 09/21/14 [History] Fluticasone Propionate [Flovent] 2 spray ASTER BEDTIME 09/18/15 [History] Aspirin [Ecotrin] 81 mg PO DAILY #30 tablet.dr 09/20/15 [Rx] Pantoprazole [ProTONIX] 40 mg PO ACBREAKFAST #45 tab.cr 09/20/15 [Rx] Memantine HCl [Namenda Xr] 28 mg PO BEDTIME 02/02/16 [History] Aclidinium [place] [Tudorza Pressair] 1 puff INH DAILY 05/12/17 [History] Budesonide/Formoterol Fumarate [Symbicort 160-4.5 Mcg Inhaler] 1 puff INH BID [History] Carbidopa/Levodopa [Carbidopa-Levo 25-100 MG ODT] 2 tab PO TID 05/12/17 [History ] Mirtazapine 15 mg PO BEDTIME 05/12/17 [History] Insulin Glarg,Human.Rec.Analog [Lantus] 25 unit SQ BEDTIME 06/26/17 [History] Allopurinol [Zyloprim] 100 mg PO DAILY 03/03/18 [History] Losartan Potassium 50 mg PO DAILY 03/03/18 [History] Multivitamin [Multivitamins] 1 tab PO DAILY 03/03/18 [History] Tamsulosin HCl 1 cap PO DAILY 03/03/18 [History] guaiFENesin [Guaifenesin] 3 tab PO DAILY 03/03/18 [History] traMADol [Ultram] 50 mg PO Q6H PRN 03/03/18 [History] Forms: ED Department Discharge Referrals: Chance Curry MD [Primary Care Provider] - - Discharge Summary/Plan Comment DC Time >30 min.: No Discharge Summary/Plan Comment: Transfer to swing bed. Continue ongoing Levaquin and physical therapy - General Info Date of Service: 03/07/18 Admission Dx/Problem (Free Text: UTI Weakness Functional Status: Reports: Pain Controlled, Tolerating Diet - Review of Systems General: Reports: Weakness. Denies: Fatigue HEENT: Reports: No Symptoms Pulmonary: Denies: Shortness of Breath, Cough Cardiovascular: Denies: Chest Pain, Edema, Lightheadedness Gastrointestinal: Denies: Abdominal Pain, Nausea, Vomiting Genitourinary: Reports: No Symptoms Musculoskeletal: Reports: No Symptoms Skin: Reports: No Symptoms Neurological: Reports: Confusion - Patient Data Vitals - Most Recent: Last Vital Signs Temp 98.1 F 03/06/18 07:47 Pulse 56 L 03/06/18 07:47 Resp 20 03/06/18 07:47 BP 118/53 L 03/06/18 07:47 Pulse Ox 96 03/06/18 07:47 Weight - Most Recent: 222 lb 11.2 oz DEVAN Results - Last 24 hrs: Microbiology 03/03/18 14:10 Aerobic Blood Culture - Preliminary Blood - Venous NO GROWTH AFTER 4 DAYS Anaerobic Blood Culture - Preliminary NO GROWTH AFTER 4 DAYS 03/03/18 14:15 Aerobic Blood Culture - Preliminary Blood - Venous - Lab Draw NO GROWTH AFTER 4 DAYS Anaerobic Blood Culture - Preliminary NO GROWTH AFTER 4 DAYS 03/03/18 11:45 Urine Culture - Final Urine, Catheterized Providencia Rettgeri Citrobacter Sedlakii Med Orders - Current: Current Medications Discontinued Medications Acetaminophen (Tylenol) 650 mg PO Q4H PRN PRN Reason: Pain (Mild 1-3)/fever Aspirin (Halfprin) 81 mg PO DAILY [facility] Last Admin: 03/06/18 07:52 Dose: 81 mg Carbidopa/Levodopa (Sinemet 25-100 Mg) 2 tab PO TID [facility] Last Admin: 03/06/18 07:52 Dose: 2 tab Docusate Sodium (Colace) 100 mg PO BID PRN PRN Reason: Constipation Donepezil HCl (Aricept) 10 mg PO DAILY [facility] Last Admin: 03/06/18 07:52 Dose: 10 mg Enoxaparin Sodium (Lovenox) 30 mg SUBCUT DAILY@1600 [facility] Last Admin: 03/05/18 15:57 Dose: 30 mg Fluticasone Propionate (Flonase) 0 gm ASTER BEDTIME [facility] Last Admin: 03/05/18 19:55 Dose: 2 sprays Levofloxacin/Dextrose 500 mg/ (Premix) 100 mls @ 100 mls/hr IV DAILY@1600 [facility] Last Admin: 03/05/18 15:56 Dose: 100 mls/hr Sodium Chloride (Normal Saline) 1,000 mls @ 100 mls/hr IV ASDIRECTED [facility] Last Admin: 03/04/18 23:26 Dose: 100 mls/hr Insulin Glargine (Lantus) 25 unit SUBCUT BEDTIME [facility] Last Admin: 03/05/18 19:53 Dose: 25 units Lorazepam (Ativan) 0.5 mg PO BID PRN PRN Reason: Anxiety Last Admin: 03/05/18 19:58 Dose: 0.5 mg Memantine (Namenda) 30 mg PO BEDTIME [facility] Last Admin: 03/05/18 19:56 Dose: 30 mg Mirtazapine (Remeron) 15 mg PO BEDTIME [facility] Last Admin: 03/05/18 19:58 Dose: 15 mg Mometasone Furoate/Formoterol Fumar (Dulera 200-5 Mcg) 1 puff IH BID [facility] Last Admin: 03/06/18 07:52 Dose: 1 puff Non-Formulary Medication (Aclidinium [place] [Tudorza Pressair]) 1 puff INH DAILY [facility] Last Admin: 03/04/18 18:07 Dose: Not Given Ondansetron HCl (Zofran Odt) 4 mg PO Q4H PRN PRN Reason: nausea, able to take PO Ondansetron HCl (Zofran) 4 mg IV Q4H PRN PRN Reason: Nausea/Vomiting Pantoprazole Sodium (Protonix) 40 mg PO ACBREAKFAST [facility] Last Admin: 03/06/18 07:25 Dose: 40 mg Polyethylene Glycol (Miralax) 17 gm PO DAILY [facility] Last Admin: 03/06/18 07:52 Dose: 17 gm Simvastatin (Zocor) 40 mg PO BEDTIME [facility] Last Admin: 03/05/18 19:58 Dose: 40 mg Tiotropium [place] (Spiriva Handihaler) 18 mcg INH DAILY [facility] Last Admin: 03/06/18 07:53 Dose: 18 mcg Tramadol HCl (Ultram) 50 mg PO Q6H PRN PRN Reason: Pain Last Admin: 03/05/18 19:57 Dose: 50 mg - Exam Quality Assessment: Reports: Supplemental Oxygen General: Reports: Alert, Oriented (person and place), Cooperative HEENT: Reports: Mucous Membr. Moist/[place] Neck: Reports: Supple Lungs: Reports: Clear to Auscultation, Normal Respiratory Effort Cardiovascular: Reports: Regular Rate, Regular Rhythm GI/Abdominal Exam: Normal Bowel Sounds, Soft, Non-Tender Extremities: Normal Inspection, Pedal Edema (trace edema) Skin: Reports: Warm, Dry Neurological: Reports: No New Focal Deficit
== END 2018-03-06 09:40 | disposition swing bed (61) | DRG 699 ==
LOC: CC.ED 08:55 → CC.MS 12:49 → UNDOADMIN 12:49 → CC.MS 13:20 → UNDODISIN 03-06 09:40
PROVIDERS: ADMIT Physician Assistant Medical; ATTEND Family Medicine
DX: T83.511A Infection and inflammatory reaction due to indwelling urethral catheter, initial encounter (principal); N30.01 Acute cystitis with hematuria; F03.90 Unspecified dementia, unspecified severity, without behavioral disturbance, psychotic disturbance, mood disturbance, and anxiety; J44.9 Chronic obstructive pulmonary disease, unspecified; F17.210 Nicotine dependence, cigarettes, uncomplicated; Z51.5 Encounter for palliative care; I10 Essential (primary) hypertension; Z66 Do not resuscitate; G30.9 Alzheimer's disease, unspecified; F02.80 Dementia in other diseases classified elsewhere, unspecified severity, without behavioral disturbance, psychotic disturbance, mood disturbance, and anxiety; R33.9 Retention of urine, unspecified; R32 Unspecified urinary incontinence; G47.33 Obstructive sleep apnea (adult) (pediatric); Y84.6 Urinary catheterization as the cause of abnormal reaction of the patient, or of later complication, without mention of misadventure at the time of the procedure; G20 Parkinson's disease; I25.10 Atherosclerotic heart disease of native coronary artery without angina pectoris; B96.89 Other specified bacterial agents as the cause of diseases classified elsewhere; H91.90 Unspecified hearing loss, unspecified ear; E78.00 Pure hypercholesterolemia, unspecified; M19.90 Unspecified osteoarthritis, unspecified site; M10.9 Gout, unspecified; F41.9 Anxiety disorder, unspecified; E66.9 Obesity, unspecified; Z68.30 Body mass index [BMI] 30.0-30.9, adult; Z99.81 Dependence on supplemental oxygen; Z95.1 Presence of aortocoronary bypass graft; Z79.899 Other long term (current) drug therapy; Z79.4 Long term (current) use of insulin; Z79.82 Long term (current) use of aspirin
CPT/HCPCS: 36415; 71045; 80048; 80053; 81001; 82550; 82962; 84484; 85025; 86140; 87040; 87086; 87088; 87186; 93005; 93010; 94640; 97110-GP; 97161-GP; 97530-GP; 99285; A9270-GY; J1650; J1815-GY; J1956; J7030

== ENCOUNTER 2018-03-06 09:40 | Inpatient (IN) | payer MEDICARE, MEDICAID ==
[2018-03-06] MEDS ORDERED: Docusate Sodium 100 MG Cap PO PRN (10:25)
[2018-03-06] MEDS ORDERED: Ondansetron 4 MG Tab.DIS PO PRN (10:25)
[2018-03-06] MEDS ORDERED: Ondansetron 4 MG/2 ML SDV IV PRN (10:25)
[2018-03-06] MEDS ORDERED: traMADol 50 MG Tab PO PRN (10:25)
[2018-03-06] MEDS ORDERED: LORazepam 0.5 MG Tab PO PRN (10:25)
[2018-03-06] MEDS ORDERED: Acetaminophen 325 MG Tab PO PRN (10:25)
[2018-03-06] MEDS: Carbidopa/Levodopa 25-100 MG Tab PO SCH ×2 (14:53→20:04)
[2018-03-06] MEDS: Levofloxacin/Dextrose 5%-Water 500 MG in Premix Bag 1 BAG IV SCH (16:20)
[2018-03-06] MEDS: Enoxaparin 40 MG/0.4 ML Syringe SUBCUT SCH (16:21)
[2018-03-06] MEDS: Insulin Glarg,Human.Rec.Analog 100 UNIT/ML ML SUBCUT SCH (20:02)
[2018-03-06] MEDS: Simvastatin 40 MG Tab PO SCH (20:03)
[2018-03-06] MEDS: Memantine 10 MG Tab PO SCH (20:03)
[2018-03-06] MEDS: Mirtazapine 15 MG Tab PO SCH (20:03)
[2018-03-06] MEDS: Fluticasone Propionate Nasal Spray 16 GM Bottle NAS SCH (20:04)
[2018-03-06] MEDS: Formoterol/Mometasone 200-5 MCG 8.8 GM Inhaler IH SCH (20:05)
[2018-03-07] MEDS: Pantoprazole 40 MG Tab.CR PO SCH (07:11)
[2018-03-07] MEDS: Tiotropium Inhaler 18 MCG Inhalation Powder Cap Kit of 5 INH SCH (07:51)
[2018-03-07] MEDS: Formoterol/Mometasone 200-5 MCG 8.8 GM Inhaler IH SCH ×2 (07:51→19:49)
[2018-03-07] MEDS: Polyethylene Glycol 3350 Powder 17 GM Packet PO SCH (07:52)
[2018-03-07] MEDS: Donepezil 5 MG Tab PO SCH (07:52)
[2018-03-07] MEDS: Aspirin 81 MG Tab.EC PO SCH (07:52)
[2018-03-07] MEDS: Carbidopa/Levodopa 25-100 MG Tab PO SCH ×3 (07:52→19:47)
[2018-03-07] MEDS: Enoxaparin 40 MG/0.4 ML Syringe SUBCUT SCH (16:33)
[2018-03-07] MEDS: Levofloxacin/Dextrose 5%-Water 500 MG in Premix Bag 1 BAG IV SCH (16:33)
[2018-03-07] MEDS: Memantine 10 MG Tab PO SCH (19:48)
[2018-03-07] MEDS: Mirtazapine 15 MG Tab PO SCH (19:48)
[2018-03-07] MEDS: Simvastatin 40 MG Tab PO SCH (19:48)
[2018-03-07] MEDS: Fluticasone Propionate Nasal Spray 16 GM Bottle NAS SCH (19:49)
[2018-03-07] MEDS: Insulin Glarg,Human.Rec.Analog 100 UNIT/ML ML SUBCUT SCH (19:49)
[2018-03-08] MEDS: Donepezil 5 MG Tab PO SCH (07:20)
[2018-03-08] MEDS: Polyethylene Glycol 3350 Powder 17 GM Packet PO SCH (07:20)
[2018-03-08] MEDS: Carbidopa/Levodopa 25-100 MG Tab PO SCH ×3 (07:21→19:31)
[2018-03-08] MEDS: Pantoprazole 40 MG Tab.CR PO SCH (07:21)
[2018-03-08] MEDS: Aspirin 81 MG Tab.EC PO SCH (07:21)
[2018-03-08] MEDS: Formoterol/Mometasone 200-5 MCG 8.8 GM Inhaler IH SCH ×2 (07:22→19:30)
[2018-03-08] MEDS: Tiotropium Inhaler 18 MCG Inhalation Powder Cap Kit of 5 INH SCH (07:23)
[2018-03-08] MEDS: Levofloxacin/Dextrose 5%-Water 500 MG in Premix Bag 1 BAG IV SCH (15:52)
[2018-03-08] MEDS: Enoxaparin 40 MG/0.4 ML Syringe SUBCUT SCH (15:52)
[2018-03-08] MEDS: Fluticasone Propionate Nasal Spray 16 GM Bottle NAS SCH (19:29)
[2018-03-08] MEDS: Memantine 10 MG Tab PO SCH (19:30)
[2018-03-08] MEDS: Mirtazapine 15 MG Tab PO SCH (19:31)
[2018-03-08] MEDS: Simvastatin 40 MG Tab PO SCH (19:31)
[2018-03-08] MEDS: Insulin Glarg,Human.Rec.Analog 100 UNIT/ML ML SUBCUT SCH (20:20)
[2018-03-09] MEDS: Pantoprazole 40 MG Tab.CR PO SCH (06:20)
[2018-03-09] MEDS: Aspirin 81 MG Tab.EC PO SCH (07:38)
[2018-03-09] MEDS: Polyethylene Glycol 3350 Powder 17 GM Packet PO SCH (07:38)
[2018-03-09] MEDS: Donepezil 5 MG Tab PO SCH (07:38)
[2018-03-09] MEDS: Formoterol/Mometasone 200-5 MCG 8.8 GM Inhaler IH SCH ×2 (07:39→19:18)
[2018-03-09] MEDS: Carbidopa/Levodopa 25-100 MG Tab PO SCH ×3 (07:39→19:19)
[2018-03-09] MEDS: Tiotropium Inhaler 18 MCG Inhalation Powder Cap Kit of 5 INH SCH (07:40)
[2018-03-09] MEDS: Enoxaparin 40 MG/0.4 ML Syringe SUBCUT SCH (15:52)
[2018-03-09] MEDS: Levofloxacin/Dextrose 5%-Water 500 MG in Premix Bag 1 BAG IV SCH (15:52)
[2018-03-09] MEDS: Fluticasone Propionate Nasal Spray 16 GM Bottle NAS SCH (19:18)
[2018-03-09] MEDS: Mirtazapine 15 MG Tab PO SCH (19:19)
[2018-03-09] MEDS: Memantine 10 MG Tab PO SCH (19:19)
[2018-03-09] MEDS: Simvastatin 40 MG Tab PO SCH (19:20)
[2018-03-09] MEDS: Insulin Glarg,Human.Rec.Analog 100 UNIT/ML ML SUBCUT SCH (20:02)
[2018-03-10] MEDS: Pantoprazole 40 MG Tab.CR PO SCH (06:16)
[2018-03-10] MEDS: Polyethylene Glycol 3350 Powder 17 GM Packet PO SCH (08:02)
[2018-03-10] MEDS: Aspirin 81 MG Tab.EC PO SCH (08:03)
[2018-03-10] MEDS: Carbidopa/Levodopa 25-100 MG Tab PO SCH ×3 (08:03→19:52)
[2018-03-10] MEDS: Donepezil 5 MG Tab PO SCH (08:04)
[2018-03-10] MEDS: Formoterol/Mometasone 200-5 MCG 8.8 GM Inhaler IH SCH ×2 (08:05→19:53)
[2018-03-10] MEDS: Tiotropium Inhaler 18 MCG Inhalation Powder Cap Kit of 5 INH SCH (08:05)
[2018-03-10] MEDS: Enoxaparin 40 MG/0.4 ML Syringe SUBCUT SCH (15:47)
[2018-03-10] MEDS: Levofloxacin/Dextrose 5%-Water 500 MG in Premix Bag 1 BAG IV SCH (15:48)
[2018-03-10] MEDS: Insulin Glarg,Human.Rec.Analog 100 UNIT/ML ML SUBCUT SCH (19:43)
[2018-03-10] MEDS: Mirtazapine 15 MG Tab PO SCH (19:52)
[2018-03-10] MEDS: Simvastatin 40 MG Tab PO SCH (19:52)
[2018-03-10] MEDS: Memantine 10 MG Tab PO SCH (19:52)
[2018-03-10] MEDS: Fluticasone Propionate Nasal Spray 16 GM Bottle NAS SCH (19:53)
[2018-03-11] MEDS: Pantoprazole 40 MG Tab.CR PO SCH (07:09)
[2018-03-11] MEDS: Tiotropium Inhaler 18 MCG Inhalation Powder Cap Kit of 5 INH SCH (07:45)
[2018-03-11] MEDS: Polyethylene Glycol 3350 Powder 17 GM Packet PO SCH (07:45)
[2018-03-11] MEDS: Donepezil 5 MG Tab PO SCH (07:46)
[2018-03-11] MEDS: Aspirin 81 MG Tab.EC PO SCH (07:46)
[2018-03-11] MEDS: Carbidopa/Levodopa 25-100 MG Tab PO SCH ×3 (07:46→20:29)
[2018-03-11] MEDS: Formoterol/Mometasone 200-5 MCG 8.8 GM Inhaler IH SCH ×2 (07:46→20:32)
[2018-03-11] MEDS: Levofloxacin/Dextrose 5%-Water 500 MG in Premix Bag 1 BAG IV SCH (15:47)
[2018-03-11] MEDS: Enoxaparin 40 MG/0.4 ML Syringe SUBCUT SCH (15:47)
[2018-03-11] MEDS: Simvastatin 40 MG Tab PO SCH (20:29)
[2018-03-11] MEDS: Memantine 10 MG Tab PO SCH (20:29)
[2018-03-11] MEDS: Mirtazapine 15 MG Tab PO SCH (20:29)
[2018-03-11] MEDS: Insulin Glarg,Human.Rec.Analog 100 UNIT/ML ML SUBCUT SCH (20:30)
[2018-03-11] MEDS: Fluticasone Propionate Nasal Spray 16 GM Bottle NAS SCH (20:32)
[2018-03-12] MEDS: Pantoprazole 40 MG Tab.CR PO SCH (06:56)
[2018-03-12 07:48] VITALS: BP 163/64
[2018-03-12] MEDS: Aspirin 81 MG Tab.EC PO SCH (08:15)
[2018-03-12] MEDS: Formoterol/Mometasone 200-5 MCG 8.8 GM Inhaler IH SCH (08:15)
[2018-03-12] MEDS: Donepezil 5 MG Tab PO SCH (08:15)
[2018-03-12] MEDS: Carbidopa/Levodopa 25-100 MG Tab PO SCH (08:15)
[2018-03-12] MEDS: Polyethylene Glycol 3350 Powder 17 GM Packet PO SCH (08:15)
[2018-03-12] MEDS: Tiotropium Inhaler 18 MCG Inhalation Powder Cap Kit of 5 INH SCH (08:16)
--- NOTE | 2018-03-12 13:58 | PCM.DCSUM1 ---
Discharge Summary - Hospital Course Free Text/Narrative:: Humphrey presented to the ER per EMS due to increased weakness. related he was unable to ambulate or transfer well. Does have chronic weakness but typically is able to go short distances with walker. As of late, unable to get him up and care for him. He is oxygen dependent, no change in breathing or increased shortness of breath. Does have chronic indwelling catheter, noted it had darker urine as of late and due for cath change. Normally done by home health nurse. ER work up did indicate a UTI. Admitted to acute inpatient for IV antibiotics and Physical Therapy. Transferred to swing bed status for ongoing physical therapy and IV Levaquin. Diagnosis: Stroke: No Modified Mil[place] Scale: No Symptoms at All Modified [place] Scale Score: 0 - Discharge Data Discharge Date: 03/12/18 Discharge Disposition: Home, W Home Health Agency 06 Condition: Good - Patient Summary/Data Complications: none Consults: Consultations 03/06/18 10:25 Consult to Case Management/Oil Lease Operator [CONS] Routine Consult to Physical Therapy [PT Evaluation and Treatment] [CONS] Routine Hospital Course: Patient has had good improvement of his overall status. Is answering most questions appropriately. Does have short term memory concerns, which is chronic for the patient. He is now able to ambulate with the walker and stand by assist, strength has improved greatly. He is afebrile. Labs are stable, WBC and CRP are normal today. He denies any pain. Patient will be discharged home with home health. Nursing to monitor blood pressure and temp, change cath monthly and watch for urinary changes or confusion. Physical therapy for strengthening and balance. Patient unable to drive due to chronic weakness and dementia. Dr. Curry to oversee home health care. - Patient Instructions Diet: Diabetic Diet Activity: As Tolerated - Discharge Plan *PRESCRIPTION DRUG MONITORING PROGRAM REVIEWED*: No *COPY OF PRESCRIPTION DRUG MONITORING REPORT IN PATIENT GENOVEVA: No Home Medications: Home Meds Acetaminophen [Tylenol Extra Strength] 500 mg PO Q4H PRN 09/21/14 [History] Donepezil HCl 10 mg PO BEDTIME 09/21/14 [History] LORazepam [Ativan] 0.5 mg PO Q6HR PRN 09/21/14 [History] Simvastatin 40 mg PO BEDTIME 09/21/14 [History] Fluticasone Propionate [Flovent] 2 spray ASTER BEDTIME 09/18/15 [History] Aspirin [Ecotrin] 81 mg PO DAILY #30 tablet.dr 09/20/15 [Rx] Pantoprazole [ProTONIX] 40 mg PO ACBREAKFAST #45 tab.cr 09/20/15 [Rx] Memantine HCl [Namenda Xr] 28 mg PO BEDTIME 02/02/16 [History] Aclidinium [place] [Tudorza Pressair] 1 puff INH DAILY 05/12/17 [History] Budesonide/Formoterol Fumarate [Symbicort 160-4.5 Mcg Inhaler] 1 puff INH BID [History] Carbidopa/Levodopa [Carbidopa-Levo 25-100 MG ODT] 2 tab PO TID 05/12/17 [History ] Mirtazapine 15 mg PO BEDTIME 05/12/17 [History] Insulin Glarg,Human.Rec.Analog [Lantus] 25 unit SQ BEDTIME 06/26/17 [History] Allopurinol [Zyloprim] 100 mg PO DAILY 03/03/18 [History] Losartan Potassium 50 mg PO DAILY 03/03/18 [History] Multivitamin [Multivitamins] 1 tab PO DAILY 03/03/18 [History] Tamsulosin HCl 1 cap PO DAILY 03/03/18 [History] guaiFENesin [Guaifenesin] 3 tab PO DAILY 03/03/18 [History] traMADol [Ultram] 50 mg PO Q6H PRN 03/03/18 [History] Patient Handouts: Urinary Tract Infection, Adult Referrals: [facility] [Outside] Chance Curry MD [Primary Care Provider] - (Follow up with Dr. Curry in 2 weeks) - Discharge Summary/Plan Comment DC Time >30 min.: No Discharge Summary/Plan Comment: Discharge home Continue home health care - General Info Date of Service: 03/12/18 Admission Dx/Problem (Free Text: UTI Weakness Functional Status: Reports: Pain Controlled, Tolerating Diet, Ambulating - Review of Systems General: Reports: Weakness. Denies: Fever, Fatigue, Malaise HEENT: Reports: No Symptoms Pulmonary: Denies: Shortness of Breath, Cough Cardiovascular: Denies: Chest Pain, Edema, Lightheadedness Gastrointestinal: Denies: Abdominal Pain, Nausea, Vomiting Genitourinary: Reports: No Symptoms Musculoskeletal: Reports: No Symptoms Neurological: Reports: Confusion (chronically has short term memory concerns), Weakness - Patient Data Vitals - Most Recent: Last Vital Signs Temp 97.0 F 03/12/18 07:47 Pulse 59 L 03/12/18 07:47 Resp 20 03/12/18 07:47 BP 163/64 H 03/12/18 07:47 Pulse Ox 97 03/12/18 07:47 Weight - Most Recent: 230 lb I&O - Last 24 hours: Intake & Output 03/11/18 03/12/18 03/12/18 22:59 06:59 14:59 Intake Total 600 200 Output Total 1175 1050 Balance -575 -850 Lab Results - Last 24 hrs: Laboratory Results - last 24 hr 03/11/18 03/12/18 03/12/18 Range/Units 19:46 07:45 08:34 WBC 7.2 (5.0-10.0) 10^3/uL RBC 4.83 (4.50-6.00) 10^6/uL Hgb 14.0 (14.0-18.0) g/dL Hct 44.5 (40.0-54.0) % MCV 92.1 (82.0-94.0) fL MCH 29.0 (27.0-32.0) pg MCHC 31.5 L (33.0-38.0) g/dL RDW Coeff of Bharathi 14.9 (11.0-15.0) % Plt Count 216 (150-400) 10^3/uL Neut % (Auto) 57.6 (35-85) % Lymph % (Auto) 29.9 (10-55) % Adams % (Auto) 8.2 (0-16) % Eos % (Auto) 4.0 (0-5) % Baso % (Auto) 0.3 (0-3) % Neut # (Auto) 4.16 (1.80-7.00) 10^3/uL Lymph # (Auto) 2.16 (1.00-4.80) 10^3/uL Adams # (Auto) 0.59 (0.00-0.80) 10^3/uL Eos # (Auto) 0.29 (0.00-0.45) 10^3/uL Baso # (Auto) 0.02 10^3/uL Sodium (136-145) mEq/L Potassium (3.5-5.0) mEq/L Chloride (98-106) mEq/L Carbon Dioxide (21-32) mmol/L BUN (7-18) mg/dL Creatinine (0.7-1.3) mg/dL Est Cr Clr Drug Dosing mL/min Estimated GFR (MDRD) (>=60) mL/min Glucose (75-99) mg/dL POC Glucose 195 H 137 H (75-105) mg/dl Calcium (8.4-10.1) mg/dL C-Reactive Protein (0.2-0.8) mg/dL 03/12/18 Range/Units 08:34 WBC (5.0-10.0) 10^3/uL RBC (4.50-6.00) 10^6/uL Hgb (14.0-18.0) g/dL Hct (40.0-54.0) % MCV (82.0-94.0) fL MCH (27.0-32.0) pg MCHC (33.0-38.0) g/dL RDW Coeff of Bharathi (11.0-15.0) % Plt Count (150-400) 10^3/uL Neut % (Auto) (35-85) % Lymph % (Auto) (10-55) % Adams % (Auto) (0-16) % Eos % (Auto) (0-5) % Baso % (Auto) (0-3) % Neut # (Auto) (1.80-7.00) 10^3/uL Lymph # (Auto) (1.00-4.80) 10^3/uL Adams # (Auto) (0.00-0.80) 10^3/uL Eos # (Auto) (0.00-0.45) 10^3/uL Baso # (Auto) 10^3/uL Sodium 141 (136-145) mEq/L Potassium 4.2 (3.5-5.0) mEq/L Chloride 108 H (98-106) mEq/L Carbon Dioxide 28 (21-32) mmol/L BUN 20 H (7-18) mg/dL Creatinine 1.5 H (0.7-1.3) mg/dL Est Cr Clr Drug Dosing 37.31 mL/min Estimated GFR (MDRD) 45 L (>=60) mL/min Glucose 172 H (75-99) mg/dL POC Glucose (75-105) mg/dl Calcium 9.1 (8.4-10.1) mg/dL C-Reactive Protein 0.7 (0.2-0.8) mg/dL Med Orders - Current: Current Medications Discontinued Medications Acetaminophen (Tylenol) 650 mg PO Q4H PRN PRN Reason: Pain (Mild 1-3)/fever Aspirin (Halfprin) 81 mg PO DAILY [facility] Last Admin: 03/12/18 08:15 Dose: 81 mg Carbidopa/Levodopa (Sinemet 25-100 Mg) 2 tab PO TID [facility] Last Admin: 03/12/18 08:15 Dose: 2 tab Docusate Sodium (Colace) 100 mg PO BID PRN PRN Reason: Constipation Donepezil HCl (Aricept) 10 mg PO DAILY [facility] Last Admin: 03/12/18 08:15 Dose: 10 mg Enoxaparin Sodium (Lovenox) 40 mg SUBCUT DAILY@1600 [facility] Last Admin: 03/11/18 15:47 Dose: 40 mg Fluticasone Propionate (Flonase) 0 gm ASTER BEDTIME [facility] Last Admin: 03/11/18 20:32 Dose: 2 spray Levofloxacin/Dextrose 500 mg/ (Premix) 100 mls @ 100 mls/hr IV DAILY@1600 [facility] Last Admin: 03/11/18 15:47 Dose: 100 mls/hr Insulin Glargine (Lantus) 25 unit SUBCUT BEDTIME [facility] Last Admin: 03/11/18 20:30 Dose: 25 units Lorazepam (Ativan) 0.5 mg PO BID PRN PRN Reason: Anxiety Memantine (Namenda) 30 mg PO BEDTIME [facility] Last Admin: 03/11/18 20:29 Dose: 30 mg Mirtazapine (Remeron) 15 mg PO BEDTIME [facility] Last Admin: 03/11/18 20:29 Dose: 15 mg Mometasone Furoate/Formoterol Fumar (Dulera 200-5 Mcg) 0 puff IH BID [facility] Last Admin: 03/12/18 08:15 Dose: 1 puff Ondansetron HCl (Zofran Odt) 4 mg PO Q4H PRN PRN Reason: nausea, able to take PO Ondansetron HCl (Zofran) 4 mg IV Q4H PRN PRN Reason: Nausea/Vomiting Pantoprazole Sodium (Protonix) 40 mg PO ACBREAKFAST [facility] Last Admin: 03/12/18 06:56 Dose: 40 mg Polyethylene Glycol (Miralax) 17 gm PO DAILY [facility] Last Admin: 03/12/18 08:15 Dose: 17 gm Simvastatin (Zocor) 40 mg PO BEDTIME [facility] Last Admin: 03/11/18 20:29 Dose: 40 mg Tiotropium [place] (Spiriva Handihaler) 18 mcg INH DAILY [facility] Last Admin: 03/12/18 08:16 Dose: 18 mcg Tramadol HCl (Ultram) 50 mg PO Q6H PRN PRN Reason: Pain Last Admin: 03/09/18 13:29 Dose: 50 mg - Exam Quality Assessment: Reports: Supplemental Oxygen General: Reports: Alert, Oriented (person and place), Cooperative HEENT: Reports: Mucous Membr. Moist/[place] Neck: Reports: Supple Lungs: Reports: Clear to Auscultation, Normal Respiratory Effort Cardiovascular: Reports: Regular Rate, Regular Rhythm GI/Abdominal Exam: Normal Bowel Sounds, Soft, Non-Tender Extremities: Normal Inspection, No Pedal Edema Skin: Reports: Warm, Dry Neurological: Reports: No New Focal Deficit
== END 2018-03-12 11:00 | disposition home health service (06) | DRG 690 ==
LOC: CC.MS 09:40
PROVIDERS: ADMIT Physician Assistant Medical; ATTEND Family Medicine
DX: N39.0 Urinary tract infection, site not specified (principal); R53.1 Weakness; E66.9 Obesity, unspecified; Z68.30 Body mass index [BMI] 30.0-30.9, adult; I10 Essential (primary) hypertension; E78.00 Pure hypercholesterolemia, unspecified; J44.9 Chronic obstructive pulmonary disease, unspecified; G47.30 Sleep apnea, unspecified; G30.9 Alzheimer's disease, unspecified; F02.80 Dementia in other diseases classified elsewhere, unspecified severity, without behavioral disturbance, psychotic disturbance, mood disturbance, and anxiety; G20 Parkinson's disease; M10.9 Gout, unspecified; F41.9 Anxiety disorder, unspecified; I25.10 Atherosclerotic heart disease of native coronary artery without angina pectoris; F17.210 Nicotine dependence, cigarettes, uncomplicated; Z51.5 Encounter for palliative care; Z79.899 Other long term (current) drug therapy; Z99.81 Dependence on supplemental oxygen; Z79.4 Long term (current) use of insulin; Z79.82 Long term (current) use of aspirin; Z95.1 Presence of aortocoronary bypass graft
CPT/HCPCS: 36415; 80048; 82962; 85025; 86140; 93923; 94640; 97110-GP; 97530-GP; A9270-GY; J1650; J1815-GY; J1956

== ENCOUNTER 2018-11-27 11:12 | Inpatient (IN) | payer MEDICARE, MEDICAID ==
--- NOTE | 2018-11-27 11:14 | EDM.PDOC ---
ED HPI GENERAL MEDICAL PROBLEM - General Chief Complaint: General Stated Complaint: increased confusion Time Seen by Provider: 11/27/18 11:08 Source of Information: Reports: Patient, EMS History Limitations: Reports: No Limitations - History of Present Illness INITIAL COMMENTS - FREE TEXT/NARRATIVE: pt to the ED c/o not feeling well for the past few days, has had fever and chills off and on, some increase in confusion, has had a Hx of UTI, O2 sat with EMS on his chronic o2 at 2Lnc was 89%, they increased hs O2 to 3Lnc, pt has had an occasional cough, no unusual neck/back pain or stiffness, no abd pain, no nvdc, Onset: Gradual Duration: Day(s): Severity: Moderate Improves with: Reports: None Worsens with: Reports: Other (activity) Associated Symptoms: Reports: Confusion, Cough, Fever/Chills, Shortness of Breath, Weakness. Denies: Chest Pain, Headaches, Nausea/Vomiting, Rash, Syncope - Related Data Allergies Allergy/AdvReac Type Severity Reaction Status Date / Time No Known Allergies Allergy Verified 11/27/18 11:17 Home Meds: Home Meds Acetaminophen [Tylenol Extra Strength] 500 mg PO Q4H PRN 09/21/14 [History] Donepezil HCl 10 mg PO BEDTIME 09/21/14 [History] LORazepam [Ativan] 0.5 mg PO Q6HR PRN 09/21/14 [History] Simvastatin 80 mg PO BEDTIME 09/21/14 [History] Fluticasone Propionate [Flovent] 2 spray ASTER BEDTIME 09/18/15 [History] Aspirin [Ecotrin EC] 81 mg PO DAILY #30 tablet. 09/20/15 [Rx] Pantoprazole [ProTONIX] 40 mg PO ACBREAKFAST #45 tab.cr 09/20/15 [Rx] Memantine HCl [Namenda Xr] 28 mg PO BEDTIME 02/02/16 [History] Budesonide/Formoterol Fumarate [Symbicort 160-4.5 Mcg Inhaler] 1 puff INH BID [History] Carbidopa/Levodopa [Carbidopa-Levo 25-100 MG ODT] 2 tab PO TID 05/12/17 [History ] Mirtazapine 15 mg PO BEDTIME 01/16/18 [History] Insulin Glarg,Human.Rec.Analog [Lantus] 25 unit SQ BEDTIME 06/26/17 [History] Allopurinol [Zyloprim] 100 mg PO DAILY 03/03/18 [History] Losartan Potassium 50 mg PO DAILY 03/03/18 [History] Tamsulosin HCl 0.4 mg PO DAILY 03/03/18 [History] traMADol [Ultram] 50 mg PO Q6H PRN 03/03/18 [History] Cefuroxime Axetil [Ceftin] 250 mg PO BEDTIME 11/27/18 [History] Gabapentin [Neurontin] 100 mg PO TID 11/27/18 [History] Tiotropium [Spiriva HandiHaler] 1 inh INH DAILY 11/27/18 [History] amLODIPine [Norvasc] 2.5 mg PO BEDTIME 11/27/18 [History] Past Medical History HEENT History: Reports: Cataract, Hard of Hearing Cardiovascular History: Reports: Bypass, CAD, High Cholesterol, Hypertension, SOB on Exertion Other Cardiovascular History: Triple bypass in about 2009 Respiratory History: Reports: COPD, Sleep Apnea Other Respiratory History: Uses CPAP (no O2) at night; ANANT Genitourinary History: Reports: Retention, Urinary, Urinary Incontinence, Other (See Below) Other Genitourinary History: overactive bladder. Musculoskeletal History: Reports: Arthritis, Gout, Other (See Below) Other Musculoskeletal History: Joint pain and gout (per clinic records) Neurological History: Reports: Alzheimers Disease, Parkinson's Psychiatric History: Reports: Anxiety, Dementia Other Psychiatric History: h/o anxiety and dementia (per clinic records) Oncologic (Cancer) History: Reports: Prostate - Past Surgical History HEENT Surgical History: Reports: Cataract Surgery, Tonsillectomy Cardiovascular Surgical History: Reports: Coronary Artery Bypass GI Surgical History: Reports: Colonoscopy Other GI Surgeries/Procedures: Colonoscopy in 2010 Social & Family History - Family History Family Medical History: Noncontributory - Caffeine Use Caffeine Use: Reports: Coffee ED ROS GENERAL - Review of Systems Review Of Systems: See Below Constitutional: Reports: Fever, Chills, Weakness HEENT: Reports: No Symptoms. Denies: Nose Pain, Rhinitis, Throat Pain, Vision Change Respiratory: Reports: Shortness of Breath, Wheezing, Cough, Sputum Cardiovascular: Reports: No Symptoms. Denies: Chest Pain Endocrine: Reports: No Symptoms GI/Abdominal: Denies: Abdominal Pain, Nausea, Vomiting : Reports: No Symptoms Musculoskeletal: Reports: No Symptoms. Denies: Neck Pain, Back Pain Skin: Reports: No Symptoms. Denies: Rash Neurological: Reports: Confusion. Denies: Dizziness, Headache Psychiatric: Reports: No Symptoms ED EXAM, GENERAL - Physical Exam Exam: See Below Exam Limited By: No Limitations General Appearance: Alert, WD/WN, No Apparent Distress, Obese Eye Exam: Bilateral Eye: PERRL Ears: Normal External Exam, Normal Canal, Hearing Grossly Normal, Normal TMs Ear Exam: Bilateral Ear: Auricle Normal, Canal Normal, TM normal Nose: Normal Inspection, Normal Mucosa Throat/Mouth: Normal Inspection, Normal Lips, Normal Teeth, Normal Oropharynx, Normal Voice, No Airway Compromise Head: Atraumatic, Normocephalic Neck: Normal Inspection, Supple, Non-Tender, Full Range of Motion Respiratory/Chest: No Respiratory Distress, Normal Breath Sounds, Wheezing. No : Lungs Clear Cardiovascular: Normal Peripheral Pulses, Regular Rate, Rhythm, No Edema Peripheral Pulses: 2+: Radial (L), Radial (R) GI/Abdominal: Normal Bowel Sounds, Soft, Non-Tender Back Exam: Normal Inspection, Full Range of Motion Extremities: Normal Inspection, Normal Range of Motion, Non-Tender, No Pedal Edema, Normal Capillary Refill Neurological: Alert, Oriented, Normal Cognition, No Motor/Sensory Deficits Psychiatric: Normal Affect, Normal Mood Skin Exam: Warm, Dry, Intact, Normal Color, No Rash Course - Vital Signs Last Recorded V/S: Last Vital Signs Temp 35.8 C 11/27/18 11:13 Pulse 67 11/27/18 11:13 Resp 16 11/27/18 11:13 BP 122/74 11/27/18 11:13 Pulse Ox 95 11/27/18 11:13 - Orders/Labs/Meds Orders: Active Orders 24 hr Category Date Time Status Insert Martin Catheter [Insert Urinary Catheter] [OM.PC] Care 11/27/18 12:30 Ordered Q24H Urinary Catheter Assessment [RC] ASDIRECTED Care 11/27/18 12:20 Active Chest 1V Frontal [CR] Stat Exams 11/27/18 11:09 Taken CULTURE BLOOD [BC] Stat Lab 11/27/18 11:28 Received CULTURE BLOOD [BC] Stat Lab 11/27/18 11:28 Received CULTURE URINE [RM] Stat Lab 11/27/18 12:18 Received Sodium Chloride 0.9% [Normal Saline] 1,000 ml Med 11/27/18 11:15 Active IV ASDIRECTED Blood Culture x2 Reflex Set [OM.PC] Stat Oth 11/27/18 11:09 Ordered EKG 12 Lead [EK] Routine Ther 11/27/18 11:09 Ordered Medication Orders Sodium Chloride (Normal Saline) 1,000 mls @ 100 mls/hr IV ASDIRECTED [facility] Last Admin: 11/27/18 11:57 Dose: 100 mls/hr Labs: Laboratory Tests 11/27/18 11/27/18 11/27/18 Range/Units 11:09 11:28 11:28 WBC 8.5 (5.0-10.0) 10^3/uL RBC 4.90 (4.50-6.00) 10^6/uL Hgb 14.9 (14.0-18.0) g/dL Hct 45.7 (40.0-54.0) % MCV 93.3 (82.0-94.0) fL MCH 30.4 (27.0-32.0) pg MCHC 32.6 L (33.0-38.0) g/dL RDW Coeff of Bharathi 13.8 (11.0-15.0) % Plt Count 179 (150-400) 10^3/uL Neut % (Auto) 69.1 (35-85) % Lymph % (Auto) 19.9 (10-55) % Webster % (Auto) 6.7 (0-16) % Eos % (Auto) 4.1 (0-5) % Baso % (Auto) 0.2 (0-3) % Neut # (Auto) 5.84 (1.80-7.00) 10^3/uL Lymph # (Auto) 1.68 (1.00-4.80) 10^3/uL Webster # (Auto) 0.57 (0.00-0.80) 10^3/uL Eos # (Auto) 0.35 (0.00-0.45) 10^3/uL Baso # (Auto) 0.02 10^3/uL ABG pH Cancelled ABG pCO2 Cancelled ABG pO2 Cancelled ABG HCO3 Cancelled ABG O2 Saturation Cancelled ABG Base Excess Cancelled Harrison Test Cancelled VBG pH 7.44 H (7.36-7.41) O2 Delivery Device Cancelled Oxygen Flow Rate Cancelled Sodium 144 (136-145) mEq/L Potassium 4.3 (3.5-5.0) mEq/L Chloride 106 (98-106) mEq/L Carbon Dioxide 29 (21-32) mmol/L BUN 18 (7-18) mg/dL Creatinine 1.6 H (0.7-1.3) mg/dL Est Cr Clr Drug Dosing 34.98 mL/min Estimated GFR (MDRD) 41 L (>=60) mL/min Glucose 210 H D (75-99) mg/dL Lactic Acid (0.4-2.0) mmol/L Calcium 9.1 (8.4-10.1) mg/dL Total Bilirubin 0.6 (0.0-1.0) mg/dL AST 16 (15-37) U/L ALT 8 L (12-78) U/L Alkaline Phosphatase 67 (46-116) U/L C-Reactive Protein 2.7 H (0.2-0.8) mg/dL Total Protein 6.6 (6.4-8.2) g/dL Albumin 3.5 (3.4-5.0) g/dL Urine Color (YELLOW) Urine Appearance (CLEAR) Urine pH (4.5-8.0) Ur Specific [place] (1.003-1.020) Urine Protein (NEGATIVE) mg/dL Urine Glucose (UA) (NEGATIVE) mg/dL Urine Ketones (NEGATIVE) mg/dL Urine Occult Blood (NEGATIVE) Urine Nitrite (NEGATIVE) Urine Bilirubin (NEGATIVE) Urine Urobilinogen (0.2-1.0) EU/dL Ur Leukocyte Esterase (NEGATIVE) Urine RBC (0-5) /HPF Urine WBC (0-5) /HPF Ur Squamous Epith Cells (NOT SEEN) /HPF Amorphous Sediment (NOT SEEN) /HPF Urine Bacteria (NOT SEEN) /HPF 11/27/18 11/27/18 Range/Units 11:28 12:18 WBC (5.0-10.0) 10^3/uL RBC (4.50-6.00) 10^6/uL Hgb (14.0-18.0) g/dL Hct (40.0-54.0) % MCV (82.0-94.0) fL MCH (27.0-32.0) pg MCHC (33.0-38.0) g/dL RDW Coeff of Bharathi (11.0-15.0) % Plt Count (150-400) 10^3/uL Neut % (Auto) (35-85) % Lymph % (Auto) (10-55) % Webster % (Auto) (0-16) % Eos % (Auto) (0-5) % Baso % (Auto) (0-3) % Neut # (Auto) (1.80-7.00) 10^3/uL Lymph # (Auto) (1.00-4.80) 10^3/uL [place] # (Auto) (0.00-0.80) 10^3/uL Eos # (Auto) (0.00-0.45) 10^3/uL Baso # (Auto) 10^3/uL ABG pH ABG pCO2 ABG pO2 ABG HCO3 ABG O2 Saturation ABG Base Excess Harrison Test VBG pH (7.36-7.41) O2 Delivery Device Oxygen Flow Rate Sodium (136-145) mEq/L Potassium (3.5-5.0) mEq/L Chloride (98-106) mEq/L Carbon Dioxide (21-32) mmol/L BUN (7-18) mg/dL Creatinine (0.7-1.3) mg/dL Est Cr Clr Drug Dosing mL/min Estimated GFR (MDRD) (>=60) mL/min Glucose (75-99) mg/dL Lactic Acid 2.0 (0.4-2.0) mmol/L Calcium (8.4-10.1) mg/dL Total Bilirubin (0.0-1.0) mg/dL AST (15-37) U/L ALT (12-78) U/L Alkaline Phosphatase (46-116) U/L C-Reactive Protein (0.2-0.8) mg/dL Total Protein (6.4-8.2) g/dL Albumin (3.4-5.0) g/dL Urine Color Yellow (YELLOW) Urine Appearance Clear (CLEAR) Urine pH 5.0 (4.5-8.0) Ur Specific [place] >= 1.030 H (1.003-1.020) Urine Protein 100 H (NEGATIVE) mg/dL Urine Glucose (UA) 100 H (NEGATIVE) mg/dL Urine Ketones Trace H (NEGATIVE) mg/dL Urine Occult Blood Negative (NEGATIVE) Urine Nitrite Negative (NEGATIVE) Urine Bilirubin Negative (NEGATIVE) Urine Urobilinogen 1.0 (0.2-1.0) EU/dL Ur Leukocyte Esterase Small H (NEGATIVE) Urine RBC Not seen (0-5) /HPF Urine WBC 10-20 H (0-5) /HPF Ur Squamous Epith Cells Few H (NOT SEEN) /HPF Amorphous Sediment Moderate H (NOT SEEN) /HPF Urine Bacteria Few H (NOT SEEN) /HPF Meds: Medications Generic Name Dose Route Start Last Admin Trade Name Freq PRN Reason Stop Dose Admin Sodium Chloride 1,000 mls @ 100 mls/hr 11/27/18 11:15 11/27/18 11:57 Normal Saline IV 100 mls/hr ASDIRECTED NAV Administration - Radiology Interpretation Free Text/Narrative:: cxr shows a new effusion vs pneumonia on the left lower lobe, awaiting radiology reading Departure - Departure Time of Disposition: 12:49 Disposition: Admitted As Inpatient 66 Condition: Good Clinical Impression: LLL pneumonia, Hypoxia, Hyperglycemia UTI (urinary tract infection) Qualifiers: Urinary tract infection type: acute cystitis Hematuria presence: with hematuria Qualified Code(s): N30.01 - Acute cystitis with hematuria - Discharge Information *PRESCRIPTION DRUG MONITORING PROGRAM REVIEWED*: Not Applicable *COPY OF PRESCRIPTION DRUG MONITORING REPORT IN PATIENT GENOVEVA: Not Applicable Forms: ED Department Discharge Care Plan Goals: will admit for IV antibx, HHN and IV fluids - Problem List & Annotations (1) UTI (urinary tract infection) SNOMED Code(s): 40677354 Code(s): N39.0 - URINARY TRACT INFECTION, SITE NOT SPECIFIED Status: Acute Priority: High Current Visit: No Onset Date: ~01/26/16 Qualifiers: Urinary tract infection type: site unspecified (2) Fever SNOMED Code(s): 100745053 Code(s): R50.9 - FEVER, UNSPECIFIED Status: Acute Priority: High Current Visit: No Onset Date: ~01/26/16 Qualifiers: Encounter type: initial encounter (3) Hyperglycemia SNOMED Code(s): 87303289 Code(s): R73.9 - HYPERGLYCEMIA, UNSPECIFIED Status: Acute Priority: Medium Current Visit: Yes (4) Hypoxia SNOMED Code(s): 356040678 Code(s): R09.02 - HYPOXEMIA Status: Acute Priority: High Current Visit : Yes (5) LLL pneumonia SNOMED Code(s): 264220464 Code(s): J18.1 - LOBAR PNEUMONIA, UNSPECIFIED ORGANISM Status: Acute Priority: High Current Visit: Yes Qualifiers: Pneumonia type: due to unspecified organism Qualified Code(s): J18.1 - Lobar pneumonia, unspecified organism - Problem List Review Problem List Initiated/Reviewed/Updated: Yes - My Orders Last 24 Hours: My Active Orders 11/27/18 11:09 Chest 1V Frontal [CR] Stat Blood Culture x2 Reflex Set [OM.PC] Stat EKG 12 Lead [EK] Routine 11/27/18 11:15 Sodium Chloride 0.9% [Normal Saline] 1,000 ml IV ASDIRECTED 11/27/18 11:28 CULTURE BLOOD [BC] Stat CULTURE BLOOD [BC] Stat 11/27/18 12:18 CULTURE URINE [RM] Stat 11/27/18 12:20 Urinary Catheter Assessment [RC] ASDIRECTED 11/27/18 12:30 Insert Martin Catheter [Insert Urinary Catheter] [OM.PC] Q24H - Assessment/Plan Admission H&P: Please use this note as an admission H&P Last 24 Hours: My Active Orders 11/27/18 11:09 Chest 1V Frontal [CR] Stat Blood Culture x2 Reflex Set [OM.PC] Stat EKG 12 Lead [EK] Routine 11/27/18 11:15 Sodium Chloride 0.9% [Normal Saline] 1,000 ml IV ASDIRECTED 11/27/18 11:28 CULTURE BLOOD [BC] Stat CULTURE BLOOD [BC] Stat 11/27/18 12:18 CULTURE URINE [RM] Stat 11/27/18 12:20 Urinary Catheter Assessment [RC] ASDIRECTED 11/27/18 12:30 Insert Martin Catheter [Insert Urinary Catheter] [OM.PC] Q24H Plan: will admit, will give IV antibiotics, IV fluids, HHN tx and reassess labs in the am
[2018-11-27] MEDS ORDERED: Sodium Chloride 0.9% 1,000 ML IV SCH (11:15)
[2018-11-27] MEDS ORDERED: Albuterol/Ipratropium 3.0-0.5 MG/3 ML Neb Soln NEB PRN (12:52)
[2018-11-27] MEDS ORDERED: cefTRIAXone 2 GM Vial IVPUSH ONE (12:52)
[2018-11-27] MEDS ORDERED: LORazepam 0.5 MG Tab PO PRN (12:59)
[2018-11-27] MEDS ORDERED: traMADol 50 MG Tab PO PRN (12:59)
[2018-11-27] MEDS ORDERED: Acetaminophen 500 MG Tab PO PRN (12:59)
[2018-11-27] MEDS ORDERED: cefTRIAXone 1 GM Vial IVPUSH SCH (13:00)
[2018-11-27] MEDS ORDERED: CARBIDOPA PO SCH (14:00)
[2018-11-27] MEDS ORDERED: [UNRECOGNIZED DRUG - OTHER] PO SCH (14:00)
[2018-11-27] MEDS ORDERED: LEVODOPA PO SCH (14:00)
[2018-11-27] MEDS: Enoxaparin 40 MG/0.4 ML Syringe SUBCUT SCH (14:03)
[2018-11-27] MEDS: Azithromycin 500 MG in Sodium Chloride 0.9% 250 ML IV SCH (14:04)
[2018-11-27] MEDS: Gabapentin 100 MG Cap PO SCH ×2 (14:09→20:18)
[2018-11-27] MEDS: Carbidopa/Levodopa 25-100 MG Tab PO SCH ×2 (14:10→20:18)
[2018-11-27] MEDS: Insulin Glargine,Human Rec. Analog 100 Units/ML 3 ML Pen SUBCUT SCH (20:00)
[2018-11-27] MEDS: MEMANTINE 28 MG PO SCH (20:00)
[2018-11-27] MEDS: Formoterol/Mometasone 200-5 MCG 8.8 GM Inhaler IH SCH (20:14)
[2018-11-27] MEDS: Donepezil 5 MG Tab PO SCH (20:15)
[2018-11-27] MEDS: Fluticasone Propionate Nasal Spray 16 GM Bottle NAS SCH (20:15)
[2018-11-27] MEDS: Mirtazapine 15 MG Tab PO SCH (20:16)
[2018-11-27] MEDS: amLODIPine 2.5 MG Tab PO SCH (20:16)
[2018-11-27] MEDS: Simvastatin 40 MG Tab PO SCH (20:19)
[2018-11-28] MEDS: Pantoprazole 40 MG Tab.CR PO SCH (07:15)
[2018-11-28] MEDS: Losartan 25 MG Tab PO SCH (07:16)
[2018-11-28] MEDS: Carbidopa/Levodopa 25-100 MG Tab PO SCH ×3 (07:16→20:10)
[2018-11-28] MEDS: Tamsulosin 0.4 MG Cap.ER PO SCH (07:16)
[2018-11-28] MEDS: Aspirin 81 MG Tab.EC PO SCH (07:16)
[2018-11-28] MEDS: Allopurinol 100 MG Tab PO SCH (07:17)
[2018-11-28] MEDS: Gabapentin 100 MG Cap PO SCH ×3 (07:17→20:10)
[2018-11-28] MEDS: Tiotropium Inhaler 18 MCG Inhalation Powder Cap Kit of 5 INH SCH (07:18)
[2018-11-28] MEDS: Formoterol/Mometasone 200-5 MCG 8.8 GM Inhaler IH SCH ×2 (07:19→20:17)
--- NOTE | 2018-11-28 08:04 | PCM.PN ---
- General Info Date of Service: 11/28/18 - Review of Systems General: Denies: Fever HEENT: Reports: No Symptoms Pulmonary: Reports: Cough, Wheezing. Denies: Shortness of Breath Cardiovascular: Reports: No Symptoms. Denies: Chest Pain Gastrointestinal: Reports: No Symptoms. Denies: Abdominal Pain, Nausea, Vomiting Genitourinary: Reports: No Symptoms Musculoskeletal: Reports: No Symptoms Skin: Reports: No Symptoms Neurological: Reports: No Symptoms Psychiatric: Reports: No Symptoms - Patient Data Vitals - Most Recent: Last Vital Signs Temp 36.3 C 11/28/18 07:12 Pulse 59 L 11/28/18 07:12 Resp 16 11/28/18 07:12 BP 176/60 H 11/28/18 07:16 Pulse Ox 97 11/28/18 07:12 Weight - Most Recent: 105.46 kg I&O - Last 24 Hours: Intake & Output 11/27/18 11/28/18 11/28/18 22:59 06:59 14:59 Intake Total 755 Output Total 100 Balance 655 Lab Results Last 24 Hours: Laboratory Results - last 24 hr 11/27/18 11/27/18 11/27/18 Range/Units 11:09 11:28 11:28 WBC 8.5 (5.0-10.0) 10^3/uL RBC 4.90 (4.50-6.00) 10^6/uL Hgb 14.9 (14.0-18.0) g/dL Hct 45.7 (40.0-54.0) % MCV 93.3 (82.0-94.0) fL MCH 30.4 (27.0-32.0) pg MCHC 32.6 L (33.0-38.0) g/dL RDW Coeff of Bharathi 13.8 (11.0-15.0) % Plt Count 179 (150-400) 10^3/uL Neut % (Auto) 69.1 (35-85) % Lymph % (Auto) 19.9 (10-55) % Bell % (Auto) 6.7 (0-16) % Eos % (Auto) 4.1 (0-5) % Baso % (Auto) 0.2 (0-3) % Neut # (Auto) 5.84 (1.80-7.00) 10^3/uL Lymph # (Auto) 1.68 (1.00-4.80) 10^3/uL Bell # (Auto) 0.57 (0.00-0.80) 10^3/uL Eos # (Auto) 0.35 (0.00-0.45) 10^3/uL Baso # (Auto) 0.02 10^3/uL ABG pH Cancelled ABG pCO2 Cancelled ABG pO2 Cancelled ABG HCO3 Cancelled ABG O2 Saturation Cancelled ABG Base Excess Cancelled Harrison Test Cancelled VBG pH 7.44 H (7.36-7.41) O2 Delivery Device Cancelled Oxygen Flow Rate Cancelled Sodium 144 (136-145) mEq/L Potassium 4.3 (3.5-5.0) mEq/L Chloride 106 (98-106) mEq/L Carbon Dioxide 29 (21-32) mmol/L BUN 18 (7-18) mg/dL Creatinine 1.6 H (0.7-1.3) mg/dL Est Cr Clr Drug Dosing 34.98 mL/min Estimated GFR (MDRD) 41 L (>=60) mL/min Glucose 210 H D (75-99) mg/dL POC Glucose (75-105) mg/dl Lactic Acid (0.4-2.0) mmol/L Calcium 9.1 (8.4-10.1) mg/dL Total Bilirubin 0.6 (0.0-1.0) mg/dL AST 16 (15-37) U/L ALT 8 L (12-78) U/L Alkaline Phosphatase 67 (46-116) U/L C-Reactive Protein 2.7 H (0.2-0.8) mg/dL Total Protein 6.6 (6.4-8.2) g/dL Albumin 3.5 (3.4-5.0) g/dL Urine Color (YELLOW) Urine Appearance (CLEAR) Urine pH (4.5-8.0) Ur Specific [place] (1.003-1.020) Urine Protein (NEGATIVE) mg/dL Urine Glucose (UA) (NEGATIVE) mg/dL Urine Ketones (NEGATIVE) mg/dL Urine Occult Blood (NEGATIVE) Urine Nitrite (NEGATIVE) Urine Bilirubin (NEGATIVE) Urine Urobilinogen (0.2-1.0) EU/dL Ur Leukocyte Esterase (NEGATIVE) Urine RBC (0-5) /HPF Urine WBC (0-5) /HPF Ur Squamous Epith Cells (NOT SEEN) /HPF Amorphous Sediment (NOT SEEN) /HPF Urine Bacteria (NOT SEEN) /HPF 11/27/18 11/27/18 11/27/18 Range/Units 11:28 12:18 16:41 WBC (5.0-10.0) 10^3/uL RBC (4.50-6.00) 10^6/uL Hgb (14.0-18.0) g/dL Hct (40.0-54.0) % MCV (82.0-94.0) fL MCH (27.0-32.0) pg MCHC (33.0-38.0) g/dL RDW Coeff of Bharathi (11.0-15.0) % Plt Count (150-400) 10^3/uL Neut % (Auto) (35-85) % Lymph % (Auto) (10-55) % Bell % (Auto) (0-16) % Eos % (Auto) (0-5) % Baso % (Auto) (0-3) % Neut # (Auto) (1.80-7.00) 10^3/uL Lymph # (Auto) (1.00-4.80) 10^3/uL Bell # (Auto) (0.00-0.80) 10^3/uL Eos # (Auto) (0.00-0.45) 10^3/uL Baso # (Auto) 10^3/uL ABG pH ABG pCO2 ABG pO2 ABG HCO3 ABG O2 Saturation ABG Base Excess Harrison Test VBG pH (7.36-7.41) O2 Delivery Device Oxygen Flow Rate Sodium (136-145) mEq/L Potassium (3.5-5.0) mEq/L Chloride (98-106) mEq/L Carbon Dioxide (21-32) mmol/L BUN (7-18) mg/dL Creatinine (0.7-1.3) mg/dL Est Cr Clr Drug Dosing mL/min Estimated GFR (MDRD) (>=60) mL/min Glucose (75-99) mg/dL POC Glucose 214 H (75-105) mg/dl Lactic Acid 2.0 (0.4-2.0) mmol/L Calcium (8.4-10.1) mg/dL Total Bilirubin (0.0-1.0) mg/dL AST (15-37) U/L ALT (12-78) U/L Alkaline Phosphatase (46-116) U/L C-Reactive Protein (0.2-0.8) mg/dL Total Protein (6.4-8.2) g/dL Albumin (3.4-5.0) g/dL Urine Color Yellow (YELLOW) Urine Appearance Clear (CLEAR) Urine pH 5.0 (4.5-8.0) Ur Specific [place] >= 1.030 H (1.003-1.020) Urine Protein 100 H (NEGATIVE) mg/dL Urine Glucose (UA) 100 H (NEGATIVE) mg/dL Urine Ketones Trace H (NEGATIVE) mg/dL Urine Occult Blood Negative (NEGATIVE) Urine Nitrite Negative (NEGATIVE) Urine Bilirubin Negative (NEGATIVE) Urine Urobilinogen 1.0 (0.2-1.0) EU/dL Ur Leukocyte Esterase Small H (NEGATIVE) Urine RBC Not seen (0-5) /HPF Urine WBC 10-20 H (0-5) /HPF Ur Squamous Epith Cells Few H (NOT SEEN) /HPF Amorphous Sediment Moderate H (NOT SEEN) /HPF Urine Bacteria Few H (NOT SEEN) /HPF 11/27/18 11/28/18 Range/Units 20:27 07:22 WBC (5.0-10.0) 10^3/uL RBC (4.50-6.00) 10^6/uL Hgb (14.0-18.0) g/dL Hct (40.0-54.0) % MCV (82.0-94.0) fL MCH (27.0-32.0) pg MCHC (33.0-38.0) g/dL RDW Coeff of Bharathi (11.0-15.0) % Plt Count (150-400) 10^3/uL Neut % (Auto) (35-85) % Lymph % (Auto) (10-55) % Bell % (Auto) (0-16) % Eos % (Auto) (0-5) % Baso % (Auto) (0-3) % Neut # (Auto) (1.80-7.00) 10^3/uL Lymph # (Auto) (1.00-4.80) 10^3/uL Bell # (Auto) (0.00-0.80) 10^3/uL Eos # (Auto) (0.00-0.45) 10^3/uL Baso # (Auto) 10^3/uL ABG pH ABG pCO2 ABG pO2 ABG HCO3 ABG O2 Saturation ABG Base Excess Harrison Test VBG pH (7.36-7.41) O2 Delivery Device Oxygen Flow Rate Sodium (136-145) mEq/L Potassium (3.5-5.0) mEq/L Chloride (98-106) mEq/L Carbon Dioxide (21-32) mmol/L BUN (7-18) mg/dL Creatinine (0.7-1.3) mg/dL Est Cr Clr Drug Dosing mL/min Estimated GFR (MDRD) (>=60) mL/min Glucose (75-99) mg/dL POC Glucose 210 H 142 H (75-105) mg/dl Lactic Acid (0.4-2.0) mmol/L Calcium (8.4-10.1) mg/dL Total Bilirubin (0.0-1.0) mg/dL AST (15-37) U/L ALT (12-78) U/L Alkaline Phosphatase (46-116) U/L C-Reactive Protein (0.2-0.8) mg/dL Total Protein (6.4-8.2) g/dL Albumin (3.4-5.0) g/dL Urine Color (YELLOW) Urine Appearance (CLEAR) Urine pH (4.5-8.0) Ur Specific [place] (1.003-1.020) Urine Protein (NEGATIVE) mg/dL Urine Glucose (UA) (NEGATIVE) mg/dL Urine Ketones (NEGATIVE) mg/dL Urine Occult Blood (NEGATIVE) Urine Nitrite (NEGATIVE) Urine Bilirubin (NEGATIVE) Urine Urobilinogen (0.2-1.0) EU/dL Ur Leukocyte Esterase (NEGATIVE) Urine RBC (0-5) /HPF Urine WBC (0-5) /HPF Ur Squamous Epith Cells (NOT SEEN) /HPF Amorphous Sediment (NOT SEEN) /HPF Urine Bacteria (NOT SEEN) /HPF Med Orders - Current: Current Medications Acetaminophen (Tylenol Extra Strength) 500 mg PO Q4H PRN PRN Reason: Pain/Fever Albuterol/Ipratropium (Duoneb 3.0-0.5 Mg/3 Ml) 3 ml NEB Q4H PRN PRN Reason: Shortness Of Breath/wheezing Allopurinol (Zyloprim) 100 mg PO DAILY [facility] Last Admin: 11/28/18 07:17 Dose: 100 mg Amlodipine Besylate (Norvasc) 2.5 mg PO BEDTIME [facility] Last Admin: 11/27/18 20:16 Dose: 2.5 mg Aspirin (Halfprin) 81 mg PO DAILY [facility] Last Admin: 11/28/18 07:16 Dose: 81 mg Carbidopa/Levodopa (Sinemet 25-100 Mg) 2 tab PO TID [facility] Last Admin: 11/28/18 07:16 Dose: 2 tab Ceftriaxone Sodium (Rocephin) 1 gm IVPUSH Q24H [facility] Donepezil HCl (Aricept) 10 mg PO BEDTIME [facility] Last Admin: 11/27/18 20:15 Dose: 10 mg Enoxaparin Sodium (Lovenox) 40 mg SUBCUT Q24H [facility] Last Admin: 11/27/18 14:03 Dose: 40 mg Fluticasone Propionate (Flonase) 0 gm ASTER BEDTIME [facility] Last Admin: 11/27/18 20:15 Dose: 2 spray Gabapentin (Neurontin) 100 mg PO TID [facility] Last Admin: 11/28/18 07:17 Dose: 100 mg Azithromycin 500 mg/ Sodium (Chloride) 250 mls @ 250 mls/hr IV Q24H [facility] Last Admin: 11/27/18 14:04 Dose: 250 mls/hr Sodium Chloride (Normal Saline) 1,000 mls @ 80 mls/hr IV ASDIRECTED [facility] Insulin Glargine (Lantus Solostar) 25 units SUBCUT BEDTIME [facility] Last Admin: 11/27/18 20:00 Dose: 25 units Lorazepam (Ativan) 0.5 mg PO Q6H PRN PRN Reason: Anxiety Losartan Potassium (Cozaar) 50 mg PO DAILY [facility] Last Admin: 11/28/18 07:16 Dose: 50 mg Mirtazapine (Remeron) 15 mg PO BEDTIME [facility] Last Admin: 11/27/18 20:16 Dose: 15 mg Mometasone Furoate/Formoterol Fumar (Dulera 200-5 Mcg) 0 puff IH BID [facility] Last Admin: 11/28/18 07:19 Dose: 1 inhalation Memantine Xr 28 Mg (Own Med) 0 mg PO BEDTIME [facility] Last Admin: 11/27/18 20:00 Dose: 28 mg Pantoprazole Sodium (Protonix) 40 mg PO ACBREAKFAST [facility] Last Admin: 11/28/18 07:15 Dose: 40 mg Simvastatin (Zocor) 80 mg PO BEDTIME [facility] Last Admin: 11/27/18 20:19 Dose: 80 mg Tamsulosin HCl (Flomax) 0.4 mg PO DAILY [facility] Last Admin: 11/28/18 07:16 Dose: 0.4 mg Tiotropium [place] (Spiriva Handihaler) 18 mcg INH DAILY [facility] Last Admin: 11/28/18 07:18 Dose: 1 inhalation Tramadol HCl (Ultram) 50 mg PO Q6H PRN PRN Reason: Pain Discontinued Medications Ceftriaxone Sodium (Rocephin) 2 gm IVPUSH ONETIME ONE Stop: 11/27/18 12:53 Last Admin: 11/27/18 14:03 Dose: 2 gm Sodium Chloride (Normal Saline) 1,000 mls @ 100 mls/hr IV ASDIRECTED [facility] Last Infusion: 11/27/18 14:20 Dose: 80 mls/hr Non-Formulary Medication (Carbidopa/Levodopa [Carbidopa-Levo 25-100 Mg Odt]) 2 tab PO TID [facility] - Exam Quality Assessment: Supplemental Oxygen General: Alert, Oriented, Cooperative, No Acute Distress Neck: Supple, Trachea Midline Lungs: Normal Respiratory Effort, Wheezing (on the left) Cardiovascular: Regular Rate, Regular Rhythm GI/Abdominal Exam: Normal Bowel Sounds, Soft, Non-Tender, No Distention Back Exam: Normal Inspection, Full Range of Motion Extremities: Normal Inspection, Normal Range of Motion, Non-Tender, No Pedal Edema, Normal Capillary Refill Peripheral Pulses: 2+: Radial (L), Radial (R), Dorsalis Pedis (L), Dorsalis Pedis (R) Skin: Warm, Dry, Intact Neurological: No New Focal Deficit, Normal Speech, Normal Tone, Strength Equal Bilateral Psy/Mental Status: Alert, Normal Affect, Normal Mood - Problem List & Annotations (1) UTI (urinary tract infection) SNOMED Code(s): 95013366 Code(s): N39.0 - URINARY TRACT INFECTION, SITE NOT SPECIFIED Status: Acute Priority: High Current Visit: No Onset Date: ~01/26/16 Qualifiers: Urinary tract infection type: site unspecified (2) Fever SNOMED Code(s): 691879461 Code(s): R50.9 - FEVER, UNSPECIFIED Status: Acute Priority: High Current Visit: No Onset Date: ~01/26/16 Qualifiers: Encounter type: initial encounter (3) Hyperglycemia SNOMED Code(s): 18125827 Code(s): R73.9 - HYPERGLYCEMIA, UNSPECIFIED Status: Acute Priority: Medium Current Visit: Yes (4) Hypoxia SNOMED Code(s): 406026092 Code(s): R09.02 - HYPOXEMIA Status: Acute Priority: High Current Visit : Yes (5) LLL pneumonia SNOMED Code(s): 217871482 Code(s): J18.1 - LOBAR PNEUMONIA, UNSPECIFIED ORGANISM Status: Acute Priority: High Current Visit: Yes Qualifiers: Pneumonia type: due to unspecified organism Qualified Code(s): J18.1 - Lobar pneumonia, unspecified organism - Problem List Review Problem List Initiated/Reviewed/Updated: Yes - My Orders Last 24 Hours: My Active Orders 11/27/18 11:09 Chest 1V Frontal [CR] Stat Blood Culture x2 Reflex Set [OM.PC] Stat EKG 12 Lead [EK] Routine 11/27/18 11:28 CULTURE BLOOD [BC] Stat CULTURE BLOOD [BC] Stat 11/27/18 12:18 CULTURE URINE [RM] Stat 11/27/18 12:30 Insert Martin Catheter [Insert Urinary Catheter] [OM.PC] Q24H 11/27/18 12:52 Blood Glucose Check, Bedside [RC] QIDACANDBED Height and Weight [RC] .PRN Oxygen Therapy [RC] 2355 Up to Chair [RC] .PRN Albuterol/Ipratropium [DuoNeb 3.0-0.5 MG/3 ML] 3 ml NEB Q4H PRN Resuscitation Status Routine 11/27/18 12:53 Patient Status [ADT] Routine Vital Signs [RC] 0000,0400,0800,1200,1600,2000 11/27/18 12:54 Cardiac Monitoring [RC] 0800,2000 Intake and Output [RC] 0600,1800 11/27/18 12:57 RT Aerosol Therapy [RC] 0800,2000 08/03/19 12:59 Acetaminophen [Tylenol Extra Strength] 500 mg PO Q4H PRN LORazepam [Ativan] 0.5 mg PO Q6H PRN traMADol [Ultram] 50 mg PO Q6H PRN 11/27/18 13:00 Azithromycin [Zithromax] 500 mg Sodium Chloride 0.9% [Normal Saline] 250 ml IV Q24H Enoxaparin [Lovenox] 40 mg SUBCUT Q24H Sodium Chloride 0.9% [Normal Saline] 1,000 ml IV ASDIRECTED 11/27/18 14:00 Carbidopa/Levodopa [Sinemet 25-100 mg] 2 tab PO TID Gabapentin [Neurontin] 100 mg PO TID 11/27/18 16:14 Antiembolic Devices [RC] 1000,2200 [place]O Hose [Antiembolic Hose] [OM.PC] Routine 11/27/18 20:00 Donepezil [Aricept] 10 mg PO BEDTIME Fluticasone Propionate [Flonase] 0 gm ASTER BEDTIME Insulin Glarg,Human.Rec.Analog [LantUS Solostar] 25 units SUBCUT BEDTIME Memantine HCl [Namenda Xr] 0 mg PO BEDTIME Mirtazapine [Remeron] 15 mg PO BEDTIME Mometasone/Formoterol [Dulera 200-5 MCG] 0 puff IH BID Simvastatin [Zocor] 80 mg PO BEDTIME amLODIPine [Norvasc] 2.5 mg PO BEDTIME 11/27/18 Lunch 2 Gram Sodium Diet [DIET] 11/28/18 05:11 BASIC METABOLIC PANEL,BMP [CHEM] AM C-REACTIVE PROTEIN [CHEM] AM CBC WITH AUTO DIFF [HEME] AM 11/28/18 07:00 Pantoprazole [ProTONIX] 40 mg PO ACBREAKFAST 11/28/18 08:00 Allopurinol [Zyloprim] 100 mg PO DAILY Aspirin [Halfprin] 81 mg PO DAILY Losartan [Cozaar] 50 mg PO DAILY Tamsulosin [Flomax] 0.4 mg PO DAILY Tiotropium [Spiriva HandiHaler] 18 mcg INH DAILY 11/28/18 12:00 cefTRIAXone [Rocephin] 1 gm IVPUSH Q24H - Plan Plan:: will continue current tx plan, will continue IV antibiotics and HHN tx, will reassess in the am and plan for discharge home
[2018-11-28] MEDS: cefTRIAXone 1 GM Vial IVPUSH SCH (11:31)
[2018-11-28] MEDS: Azithromycin 500 MG in Sodium Chloride 0.9% 250 ML IV SCH (12:30)
[2018-11-28] MEDS: Albuterol/Ipratropium 3.0-0.5 MG/3 ML Neb Soln NEB SCH ×3 (12:31→20:35)
[2018-11-28] MEDS: Enoxaparin 40 MG/0.4 ML Syringe SUBCUT SCH (12:31)
[2018-11-28] MEDS: Sodium Chloride 0.9% 1,000 ML IV SCH ×2 (15:15→20:12)
[2018-11-28] MEDS: Simvastatin 40 MG Tab PO SCH (20:09)
[2018-11-28] MEDS: Donepezil 5 MG Tab PO SCH (20:09)
[2018-11-28] MEDS: amLODIPine 2.5 MG Tab PO SCH (20:10)
[2018-11-28] MEDS: Mirtazapine 15 MG Tab PO SCH (20:10)
[2018-11-28] MEDS: MEMANTINE 28 MG PO SCH (20:16)
[2018-11-28] MEDS: Fluticasone Propionate Nasal Spray 16 GM Bottle NAS SCH (20:17)
[2018-11-28] MEDS: Insulin Glargine,Human Rec. Analog 100 Units/ML 3 ML Pen SUBCUT SCH (20:18)
[2018-11-29] MEDS: Pantoprazole 40 MG Tab.CR PO SCH (06:23)
[2018-11-29] MEDS: Gabapentin 100 MG Cap PO SCH ×3 (08:07→19:20)
[2018-11-29] MEDS: Albuterol/Ipratropium 3.0-0.5 MG/3 ML Neb Soln NEB SCH ×4 (08:07→19:20)
[2018-11-29] MEDS: Carbidopa/Levodopa 25-100 MG Tab PO SCH ×3 (08:07→19:20)
[2018-11-29] MEDS: Tamsulosin 0.4 MG Cap.ER PO SCH (08:07)
[2018-11-29] MEDS: Losartan 25 MG Tab PO SCH (08:08)
[2018-11-29] MEDS: Allopurinol 100 MG Tab PO SCH (08:08)
[2018-11-29] MEDS: Aspirin 81 MG Tab.EC PO SCH (08:08)
[2018-11-29] MEDS: Formoterol/Mometasone 200-5 MCG 8.8 GM Inhaler IH SCH ×2 (08:09→19:22)
--- NOTE | 2018-11-29 09:15 | PCM.PN ---
- General Info Date of Service: 11/29/18 Admission Dx/Problem (Free Text): LLL Pneumonia UTI Functional Status: Reports: Pain Controlled, Tolerating Diet, Ambulating - Review of Systems General: Reports: Weakness, Fatigue. Denies: Fever, Malaise HEENT: Denies: Ear Pain, Sinus Congestion, Rhinitis Pulmonary: Reports: Cough. Denies: Shortness of Breath, Sputum Cardiovascular: Denies: Chest Pain, Edema, Lightheadedness Gastrointestinal: Denies: Abdominal Pain, Nausea, Vomiting Genitourinary: Reports: Incontinence Musculoskeletal: Reports: No Symptoms Skin: Reports: No Symptoms Neurological: Reports: Confusion, Pre-Existing Deficit - Patient Data Vitals - Most Recent: Last Vital Signs Temp 97 F 11/29/18 07:59 Pulse 65 11/29/18 07:59 Resp 18 11/29/18 07:59 BP 188/67 H 11/29/18 08:08 Pulse Ox 100 11/29/18 07:59 Weight - Most Recent: 232 lb 8 oz I&O - Last 24 Hours: Intake & Output 11/28/18 11/29/18 11/29/18 22:59 06:59 14:59 Intake Total 596 Output Total 1 Balance 595 Lab Results Last 24 Hours: Laboratory Results - last 24 hr 11/28/18 11/28/18 11/28/18 Range/Units 09:51 11:30 16:48 POC Glucose 295 H 282 H 259 H (75-105) mg/dl 11/28/18 11/29/18 Range/Units 20:29 07:57 POC Glucose 256 H 184 H (75-105) mg/dl Brent Results Last 24 Hours: Microbiology 11/27/18 11:28 Aerobic Blood Culture - Preliminary Blood - Venous NO GROWTH AFTER 1 DAY Anaerobic Blood Culture - Preliminary NO GROWTH AFTER 1 DAY 11/27/18 11:28 Aerobic Blood Culture - Preliminary Blood - Venous - Lab Draw NO GROWTH AFTER 1 DAY Anaerobic Blood Culture - Preliminary NO GROWTH AFTER 1 DAY 11/27/18 12:18 Urine Culture - Preliminary Urine, Voided Gram Negative Rods Med Orders - Current: Current Medications Acetaminophen (Tylenol Extra Strength) 500 mg PO Q4H PRN PRN Reason: Pain/Fever Last Admin: 11/28/18 13:26 Dose: 500 mg Albuterol/Ipratropium (Duoneb 3.0-0.5 Mg/3 Ml) 3 ml NEB QIDRT [facility] Last Admin: 11/29/18 08:07 Dose: 3 ml Allopurinol (Zyloprim) 100 mg PO DAILY [facility] Last Admin: 11/29/18 08:08 Dose: 100 mg Amlodipine Besylate (Norvasc) 2.5 mg PO BEDTIME [facility] Last Admin: 11/28/18 20:10 Dose: 2.5 mg Aspirin (Halfprin) 81 mg PO DAILY [facility] Last Admin: 11/29/18 08:08 Dose: 81 mg Carbidopa/Levodopa (Sinemet 25-100 Mg) 2 tab PO TID [facility] Last Admin: 11/29/18 08:07 Dose: 2 tab Ceftriaxone Sodium (Rocephin) 1 gm IVPUSH Q24H [facility] Last Admin: 11/28/18 11:31 Dose: 1 gm Donepezil HCl (Aricept) 10 mg PO BEDTIME [facility] Last Admin: 11/28/18 20:09 Dose: 10 mg Enoxaparin Sodium (Lovenox) 40 mg SUBCUT Q24H [facility] Last Admin: 11/28/18 12:31 Dose: 40 mg Fluticasone Propionate (Flonase) 0 gm ASTER BEDTIME [facility] Last Admin: 11/28/18 20:17 Dose: 2 spray Gabapentin (Neurontin) 100 mg PO TID [facility] Last Admin: 11/29/18 08:07 Dose: 100 mg Azithromycin 500 mg/ Sodium (Chloride) 250 mls @ 250 mls/hr IV Q24H [facility] Last Admin: 11/28/18 12:30 Dose: 250 mls/hr Sodium Chloride (Normal Saline) 1,000 mls @ 80 mls/hr IV ASDIRECTED [facility] Last Admin: 11/28/18 20:12 Dose: 80 mls/hr Insulin Glargine (Lantus Solostar) 25 units SUBCUT BEDTIME [facility] Last Admin: 11/28/18 20:18 Dose: 25 units Lorazepam (Ativan) 0.5 mg PO Q6H PRN PRN Reason: Anxiety Losartan Potassium (Cozaar) 50 mg PO DAILY [facility] Last Admin: 11/29/18 08:08 Dose: 50 mg Mirtazapine (Remeron) 15 mg PO BEDTIME [facility] Last Admin: 11/28/18 20:10 Dose: 15 mg Mometasone Furoate/Formoterol Fumar (Dulera 200-5 Mcg) 0 puff IH BID [facility] Last Admin: 11/29/18 08:09 Dose: 1 inhalation Memantine Xr 28 Mg (Own Med) 0 mg PO BEDTIME [facility] Last Admin: 11/28/18 20:16 Dose: 28 mg Pantoprazole Sodium (Protonix) 40 mg PO ACBREAKFAST [facility] Last Admin: 11/29/18 06:23 Dose: 40 mg Simvastatin (Zocor) 80 mg PO BEDTIME [facility] Last Admin: 11/28/18 20:09 Dose: 80 mg Tamsulosin HCl (Flomax) 0.4 mg PO DAILY [facility] Last Admin: 11/29/18 08:07 Dose: 0.4 mg Tiotropium [place] (Spiriva Handihaler) 18 mcg INH DAILY [facility] Last Admin: 11/28/18 07:18 Dose: 1 inhalation Tramadol HCl (Ultram) 50 mg PO Q6H PRN PRN Reason: Pain Discontinued Medications Albuterol/Ipratropium (Duoneb 3.0-0.5 Mg/3 Ml) 3 ml NEB Q4H PRN PRN Reason: Shortness Of Breath/wheezing Ceftriaxone Sodium (Rocephin) 2 gm IVPUSH ONETIME ONE Stop: 11/27/18 12:53 Last Admin: 11/27/18 14:03 Dose: 2 gm Sodium Chloride (Normal Saline) 1,000 mls @ 100 mls/hr IV ASDIRECTED [facility] Last Infusion: 11/27/18 14:20 Dose: 80 mls/hr Non-Formulary Medication (Carbidopa/Levodopa [Carbidopa-Levo 25-100 Mg Odt]) 2 tab PO TID [facility] - Exam Quality Assessment: Supplemental Oxygen General: Alert, Oriented HEENT: Mucous Membr. Moist/[place] Neck: Supple Lungs: Decreased Breath Sounds, Rhonchi, Wheezing Cardiovascular: Regular Rate, Regular Rhythm GI/Abdominal Exam: Normal Bowel Sounds, Soft, Non-Tender Extremities: Normal Inspection, No Pedal Edema Skin: Warm, Dry Neurological: No New Focal Deficit - Problem List & Annotations (1) LLL pneumonia SNOMED Code(s): 983010263 Code(s): J18.1 - LOBAR PNEUMONIA, UNSPECIFIED ORGANISM Status: Acute Priority: High Current Visit: Yes Qualifiers: Pneumonia type: due to other aerobic Gram-negative bacteria Qualified Code( s): J15.6 - Pneumonia due to other Gram-negative bacteria (2) UTI (urinary tract infection) SNOMED Code(s): 51956384 Code(s): N39.0 - URINARY TRACT INFECTION, SITE NOT SPECIFIED Status: Acute Priority: High Current Visit: Yes Qualifiers: Urinary tract infection type: acute cystitis Hematuria presence: without hematuria Qualified Code(s): N30.00 - Acute cystitis without hematuria (3) Palliative care patient SNOMED Code(s): 257948055 Code(s): Z51.5 - ENCOUNTER FOR PALLIATIVE CARE Status: Acute Priority: High Current Visit: Yes - Problem List Review Problem List Initiated/Reviewed/Updated: Yes - My Orders Last 24 Hours: My Active Orders 11/30/18 05:11 BASIC METABOLIC PANEL,BMP [CHEM] AM C-REACTIVE PROTEIN [CHEM] AM CBC WITH AUTO DIFF [HEME] AM - Assessment Assessment:: LLL Pneumonia UTI - Plan Plan:: will continue current tx plan, will continue IV antibiotics and HHN tx, will reassess in the am and plan for discharge home 11-29-2018 Patient resting comfortably. Denies shortness of breath. Does have occasional nonproductive cough. Lung sounds note wheezing and rhonchi in LLL. Oxygen sat 97% on 2 liters. Afebrile. Good appetite. Oriented to person and place today. concerned as is still weak, not transferring or ambulating as well as his norm. Is incontinent of urine since catheter was removed a week ago. She relates that Dr. Leblanc did not feel it was necessary to put back in as they had been having trouble with keeping it intact. Dr. Curry agrees with this. Will continue with same meds. Stop telemetry. Physical therapy for strengthening. Acquire labs in am.
[2018-11-29] MEDS: cefTRIAXone 1 GM Vial IVPUSH SCH (11:41)
[2018-11-29] MEDS: Azithromycin 500 MG in Sodium Chloride 0.9% 250 ML IV SCH (13:04)
[2018-11-29] MEDS: Enoxaparin 40 MG/0.4 ML Syringe SUBCUT SCH (13:04)
[2018-11-29] MEDS: Donepezil 5 MG Tab PO SCH (19:20)
[2018-11-29] MEDS: Simvastatin 40 MG Tab PO SCH (19:20)
[2018-11-29] MEDS: Mirtazapine 15 MG Tab PO SCH (19:21)
[2018-11-29] MEDS: amLODIPine 2.5 MG Tab PO SCH (19:21)
[2018-11-29] MEDS: MEMANTINE 28 MG PO SCH (19:22)
[2018-11-29] MEDS: Fluticasone Propionate Nasal Spray 16 GM Bottle NAS SCH (19:23)
[2018-11-29] MEDS: Insulin Glargine,Human Rec. Analog 100 Units/ML 3 ML Pen SUBCUT SCH (19:26)
[2018-11-30] MEDS: Pantoprazole 40 MG Tab.CR PO SCH (06:45)
[2018-11-30] MEDS: Formoterol/Mometasone 200-5 MCG 8.8 GM Inhaler IH SCH ×2 (07:56→19:41)
[2018-11-30] MEDS: Albuterol/Ipratropium 3.0-0.5 MG/3 ML Neb Soln NEB SCH ×4 (07:56→19:41)
[2018-11-30] MEDS: Carbidopa/Levodopa 25-100 MG Tab PO SCH ×3 (07:57→19:35)
[2018-11-30] MEDS: Gabapentin 100 MG Cap PO SCH ×3 (07:57→19:33)
[2018-11-30] MEDS: Losartan 25 MG Tab PO SCH (07:57)
[2018-11-30] MEDS: Tamsulosin 0.4 MG Cap.ER PO SCH (07:58)
[2018-11-30] MEDS: Aspirin 81 MG Tab.EC PO SCH (07:58)
[2018-11-30] MEDS: Allopurinol 100 MG Tab PO SCH (07:58)
--- NOTE | 2018-11-30 09:02 | PCM.PN ---
- General Info Date of Service: 11/30/18 Admission Dx/Problem (Free Text): LLL Pneumonia UTI Functional Status: Reports: Pain Controlled, Tolerating Diet, Ambulating, Urinating - Review of Systems General: Reports: Weakness, Fatigue. Denies: Fever HEENT: Denies: Ear Pain, Sinus Congestion, Sore Throat Pulmonary: Reports: Shortness of Breath, Cough, Wheezing Cardiovascular: Denies: Chest Pain, Edema, Lightheadedness Gastrointestinal: Denies: Abdominal Pain, Nausea, Vomiting Genitourinary: Reports: Incontinence Musculoskeletal: Reports: No Symptoms Skin: Reports: No Symptoms Neurological: Reports: Weakness - Patient Data Vitals - Most Recent: Last Vital Signs Temp 96.9 F 11/30/18 03:53 Pulse 72 11/30/18 03:53 Resp 20 11/30/18 03:53 BP 180/67 H 11/30/18 07:57 Pulse Ox 97 11/30/18 03:53 Weight - Most Recent: 232 lb 8 oz Lab Results Last 24 Hours: Laboratory Results - last 24 hr 11/29/18 11/29/18 11/29/18 Range/Units 11:39 17:59 19:26 WBC (5.0-10.0) 10^3/uL RBC (4.50-6.00) 10^6/uL Hgb (14.0-18.0) g/dL Hct (40.0-54.0) % MCV (82.0-94.0) fL MCH (27.0-32.0) pg MCHC (33.0-38.0) g/dL RDW Coeff of Bharathi (11.0-15.0) % Plt Count (150-400) 10^3/uL Neut % (Auto) (35-85) % Lymph % (Auto) (10-55) % [place] % (Auto) (0-16) % Eos % (Auto) (0-5) % Baso % (Auto) (0-3) % Neut # (Auto) (1.80-7.00) 10^3/uL Lymph # (Auto) (1.00-4.80) 10^3/uL [place] # (Auto) (0.00-0.80) 10^3/uL Eos # (Auto) (0.00-0.45) 10^3/uL Baso # (Auto) 10^3/uL Sodium (136-145) mEq/L Potassium (3.5-5.0) mEq/L Chloride (98-106) mEq/L Carbon Dioxide (21-32) mmol/L BUN (7-18) mg/dL Creatinine (0.7-1.3) mg/dL Est Cr Clr Drug Dosing mL/min Estimated GFR (MDRD) (>=60) mL/min Glucose (75-99) mg/dL POC Glucose 246 H 180 H 229 H (75-105) mg/dl Calcium (8.4-10.1) mg/dL C-Reactive Protein (0.2-0.8) mg/dL 11/30/18 11/30/18 11/30/18 Range/Units 05:11 07:00 07:48 WBC 6.0 (5.0-10.0) 10^3/uL RBC 4.76 (4.50-6.00) 10^6/uL Hgb 14.5 (14.0-18.0) g/dL Hct 44.6 (40.0-54.0) % MCV 93.7 (82.0-94.0) fL MCH 30.5 (27.0-32.0) pg MCHC 32.5 L (33.0-38.0) g/dL RDW Coeff of Bharathi 13.7 (11.0-15.0) % Plt Count 202 (150-400) 10^3/uL Neut % (Auto) 58.8 (35-85) % Lymph % (Auto) 26.2 (10-55) % [place] % (Auto) 6.7 (0-16) % Eos % (Auto) 8.0 H (0-5) % Baso % (Auto) 0.3 (0-3) % Neut # (Auto) 3.52 (1.80-7.00) 10^3/uL Lymph # (Auto) 1.57 (1.00-4.80) 10^3/uL [place] # (Auto) 0.40 (0.00-0.80) 10^3/uL Eos # (Auto) 0.48 H (0.00-0.45) 10^3/uL Baso # (Auto) 0.02 10^3/uL Sodium 145 (136-145) mEq/L Potassium 4.1 (3.5-5.0) mEq/L Chloride 108 H (98-106) mEq/L Carbon Dioxide 29 (21-32) mmol/L BUN 10 (7-18) mg/dL Creatinine 1.3 (0.7-1.3) mg/dL Est Cr Clr Drug Dosing 43.05 mL/min Estimated GFR (MDRD) 53 L (>=60) mL/min Glucose 153 H (75-99) mg/dL POC Glucose 159 H (75-105) mg/dl Calcium 9.3 (8.4-10.1) mg/dL C-Reactive Protein 1.5 H (0.2-0.8) mg/dL [place] Results Last 24 Hours: Microbiology 11/27/18 11:28 Aerobic Blood Culture - Preliminary Blood - Venous NO GROWTH AFTER 2 DAYS Anaerobic Blood Culture - Preliminary NO GROWTH AFTER 2 DAYS 11/27/18 11:28 Aerobic Blood Culture - Preliminary Blood - Venous - Lab Draw NO GROWTH AFTER 2 DAYS Anaerobic Blood Culture - Preliminary NO GROWTH AFTER 2 DAYS 11/27/18 12:18 Urine Culture - Final Urine, Voided Proteus Vulgaris Med Orders - Current: Current Medications Acetaminophen (Tylenol Extra Strength) 500 mg PO Q4H PRN PRN Reason: Pain/Fever Last Admin: 11/28/18 13:26 Dose: 500 mg Albuterol/Ipratropium (Duoneb 3.0-0.5 Mg/3 Ml) 3 ml NEB QIDRT [facility] Last Admin: 11/30/18 07:56 Dose: 3 ml Allopurinol (Zyloprim) 100 mg PO DAILY [facility] Last Admin: 11/30/18 07:58 Dose: 100 mg Amlodipine Besylate (Norvasc) 2.5 mg PO BEDTIME [facility] Last Admin: 11/29/18 19:21 Dose: 2.5 mg Aspirin (Halfprin) 81 mg PO DAILY [facility] Last Admin: 11/30/18 07:58 Dose: 81 mg Carbidopa/Levodopa (Sinemet 25-100 Mg) 2 tab PO TID [facility] Last Admin: 11/30/18 07:57 Dose: 2 tab Ceftriaxone Sodium (Rocephin) 1 gm IVPUSH Q24H [facility] Last Admin: 11/29/18 11:41 Dose: 1 gm Donepezil HCl (Aricept) 10 mg PO BEDTIME [facility] Last Admin: 11/29/18 19:20 Dose: 10 mg Enoxaparin Sodium (Lovenox) 40 mg SUBCUT Q24H [facility] Last Admin: 11/29/18 13:04 Dose: 40 mg Fluticasone Propionate (Flonase) 0 gm ASTER BEDTIME [facility] Last Admin: 11/29/18 19:23 Dose: 2 spray Gabapentin (Neurontin) 100 mg PO TID [facility] Last Admin: 11/30/18 07:57 Dose: 100 mg Azithromycin 500 mg/ Sodium (Chloride) 250 mls @ 250 mls/hr IV Q24H [facility] Last Admin: 11/29/18 13:04 Dose: 250 mls/hr Insulin Glargine (Lantus Solostar) 25 units SUBCUT BEDTIME [facility] Last Admin: 11/29/18 19:26 Dose: 25 units Lorazepam (Ativan) 0.5 mg PO Q6H PRN PRN Reason: Anxiety Losartan Potassium (Cozaar) 50 mg PO DAILY [facility] Last Admin: 11/30/18 07:57 Dose: 50 mg Mirtazapine (Remeron) 15 mg PO BEDTIME [facility] Last Admin: 11/29/18 19:21 Dose: 15 mg Mometasone Furoate/Formoterol Fumar (Dulera 200-5 Mcg) 0 puff IH BID [facility] Last Admin: 11/30/18 07:56 Dose: 1 inhalation Memantine Xr 28 Mg (Own Med) 0 mg PO BEDTIME [facility] Last Admin: 11/29/18 19:22 Dose: 28 mg Pantoprazole Sodium (Protonix) 40 mg PO ACBREAKFAST [facility] Last Admin: 11/30/18 06:45 Dose: 40 mg Simvastatin (Zocor) 80 mg PO BEDTIME [facility] Last Admin: 11/29/18 19:20 Dose: 80 mg Tamsulosin HCl (Flomax) 0.4 mg PO DAILY [facility] Last Admin: 11/30/18 07:58 Dose: 0.4 mg Tiotropium [place] (Spiriva Handihaler) 18 mcg INH DAILY [facility] Last Admin: 11/28/18 07:18 Dose: 1 inhalation Tramadol HCl (Ultram) 50 mg PO Q6H PRN PRN Reason: Pain Discontinued Medications Albuterol/Ipratropium (Duoneb 3.0-0.5 Mg/3 Ml) 3 ml NEB Q4H PRN PRN Reason: Shortness Of Breath/wheezing Ceftriaxone Sodium (Rocephin) 2 gm IVPUSH ONETIME ONE Stop: 11/27/18 12:53 Last Admin: 11/27/18 14:03 Dose: 2 gm Sodium Chloride (Normal Saline) 1,000 mls @ 100 mls/hr IV ASDIRECTED [facility] Last Infusion: 11/27/18 14:20 Dose: 80 mls/hr Sodium Chloride (Normal Saline) 1,000 mls @ 80 mls/hr IV ASDIRECTED [facility] Last Admin: 11/28/18 20:12 Dose: 80 mls/hr Non-Formulary Medication (Carbidopa/Levodopa [Carbidopa-Levo 25-100 Mg Odt]) 2 tab PO TID NAV - Exam Quality Assessment: Supplemental Oxygen General: Alert, Oriented HEENT: Mucous Membr. Moist/[place] Neck: Supple Lungs: Decreased Breath Sounds, Wheezing Cardiovascular: Regular Rate, Regular Rhythm GI/Abdominal Exam: Normal Bowel Sounds, Soft, Non-Tender Extremities: Normal Inspection, No Pedal Edema Skin: Warm, Dry Neurological: No New Focal Deficit - Problem List & Annotations (1) LLL pneumonia SNOMED Code(s): 980890433 Code(s): J18.1 - LOBAR PNEUMONIA, UNSPECIFIED ORGANISM Status: Acute Priority: High Current Visit: Yes Qualifiers: Pneumonia type: due to other aerobic Gram-negative bacteria Qualified Code( s): J15.6 - Pneumonia due to other Gram-negative bacteria (2) UTI (urinary tract infection) SNOMED Code(s): 79772684 Code(s): N39.0 - URINARY TRACT INFECTION, SITE NOT SPECIFIED Status: Acute Priority: High Current Visit: Yes Qualifiers: Urinary tract infection type: acute cystitis Hematuria presence: without hematuria Qualified Code(s): N30.00 - Acute cystitis without hematuria (3) Palliative care patient SNOMED Code(s): 019636008 Code(s): Z51.5 - ENCOUNTER FOR PALLIATIVE CARE Status: Acute Priority: High Current Visit: Yes - Problem List Review Problem List Initiated/Reviewed/Updated: Yes - My Orders Last 24 Hours: My Active Orders 11/29/18 09:19 Consult to Physical Therapy [PT Evaluation and Treatment] [CONS] Routine - Assessment Assessment:: LLL Pneumonia UTI - Plan Plan:: will continue current tx plan, will continue IV antibiotics and HHN tx, will reassess in the am and plan for discharge home 11-29-2018 Patient resting comfortably. Denies shortness of breath. Does have occasional nonproductive cough. Lung sounds note wheezing and rhonchi in LLL. Oxygen sat 97% on 2 liters. Afebrile. Good appetite. Oriented to person and place today. concerned as is still weak, not transferring or ambulating as well as his norm. Is incontinent of urine since catheter was removed a week ago. She relates that Dr. Leblanc did not feel it was necessary to put back in as they had been having trouble with keeping it intact. Dr. Curry agrees with this. Will continue with same meds. Stop telemetry. Physical therapy for strengthening. Acquire labs in am. 11-30-2018 Patient alert, conversive this am. States feeling good. Still has occasional dry cough. Wheezing noted in lower lungs. Oxygen sat 97-99% on one liter. Was up and ambulating short distances yesterday with PT and staff, feels is close to his baseline. Incontinent of urine. WBC 6.0, CRP 1.5, electrolytes normal. Urine culture did grow out proteus, sensitive to Fortaz. Blood pressure has been high systolically, 170s-190s. Will increase Norvasc to 5 mg at bedtime. Physical therapy today, possible discharge home in am.
[2018-11-30] MEDS: cefTRIAXone 1 GM Vial IVPUSH SCH (11:35)
[2018-11-30] MEDS: Enoxaparin 40 MG/0.4 ML Syringe SUBCUT SCH (13:08)
[2018-11-30] MEDS: Azithromycin 500 MG in Sodium Chloride 0.9% 250 ML IV SCH (13:46)
[2018-11-30] MEDS: Donepezil 5 MG Tab PO SCH (19:30)
[2018-11-30] MEDS: cefTAZidime 1 GM Vial IVPUSH SCH (19:31)
[2018-11-30] MEDS: Fluticasone Propionate Nasal Spray 16 GM Bottle NAS SCH (19:31)
[2018-11-30] MEDS: MEMANTINE 28 MG PO SCH (19:33)
[2018-11-30] MEDS: Mirtazapine 15 MG Tab PO SCH (19:34)
[2018-11-30] MEDS: Simvastatin 40 MG Tab PO SCH (19:35)
[2018-11-30] MEDS: Insulin Glargine,Human Rec. Analog 100 Units/ML 3 ML Pen SUBCUT SCH (19:51)
[2018-11-30] MEDS ORDERED: amLODIPine 2.5 MG Tab PO SCH (20:00)
[2018-12-01] MEDS: Pantoprazole 40 MG Tab.CR PO SCH (06:15)
[2018-12-01] MEDS: Formoterol/Mometasone 200-5 MCG 8.8 GM Inhaler IH SCH (08:13)
[2018-12-01] MEDS: Gabapentin 100 MG Cap PO SCH (08:13)
[2018-12-01] MEDS: Albuterol/Ipratropium 3.0-0.5 MG/3 ML Neb Soln NEB SCH (08:13)
[2018-12-01] MEDS: Losartan 25 MG Tab PO SCH (08:13)
[2018-12-01] MEDS: Carbidopa/Levodopa 25-100 MG Tab PO SCH (08:13)
[2018-12-01] MEDS: Tamsulosin 0.4 MG Cap.ER PO SCH (08:14)
[2018-12-01] MEDS: Allopurinol 100 MG Tab PO SCH (08:14)
[2018-12-01] MEDS: Aspirin 81 MG Tab.EC PO SCH (08:14)
[2018-12-01 08:18] VITALS: BP 149/61
[2018-12-01] MEDS: Tiotropium Inhaler 18 MCG Inhalation Powder Cap Kit of 5 INH SCH (08:18)
[2018-12-01] MEDS: cefTAZidime 1 GM Vial IVPUSH SCH (08:33)
--- NOTE | 2018-12-01 09:24 | PCM.DCSUM1 ---
Discharge Summary - Hospital Course Free Text/Narrative:: Patient presented to ER with increased weakness, shortness of breath and more confusion. Fever and chills. Was unable to ambulate as well as his norm at home. Oxygen sat on his usual 2 liters was 89%. Has history of chronic UTI. Had catheter removed approximately a week prior as Dr. Leblanc did not feel necessary to continue. Work up concerning for LLL pneumonia. Positive for UTI. Admitted and started on IV Rocephin. Diagnosis: Stroke: No Modified Whiteside Scale: No Symptoms at All Modified Olivia Scale Score: 0 - Discharge Data Discharge Date: 12/01/18 Discharge Disposition: Home, Self-Care 01 Condition: Good - Discharge Diagnosis/Problem(s) (1) LLL pneumonia SNOMED Code(s): 485189220 ICD Code: J18.1 - LOBAR PNEUMONIA, UNSPECIFIED ORGANISM Status: Acute Priority: High Qualifiers: Pneumonia type: due to other aerobic Gram-negative bacteria Qualified Code( s): J15.6 - Pneumonia due to other Gram-negative bacteria (2) UTI (urinary tract infection) SNOMED Code(s): 33666653 ICD Code: N39.0 - URINARY TRACT INFECTION, SITE NOT SPECIFIED Status: Acute Priority: High Qualifiers: Urinary tract infection type: acute cystitis Hematuria presence: without hematuria Qualified Code(s): N30.00 - Acute cystitis without hematuria (3) Palliative care patient SNOMED Code(s): 551154219 ICD Code: Z51.5 - ENCOUNTER FOR PALLIATIVE CARE Status: Acute Priority: High - Patient Summary/Data Complications: none Consults: Consultations 11/29/18 09:19 Consult to Physical Therapy [PT Evaluation and Treatment] [CONS] Routine Hospital Course: Patient doing much better today. Is ambulating well with walker, stand by assist. relates ambulating at his best. Did develop low grade fevers. Cough dry, nonproductive. Oxygen sat is now 97% with 2 liters, which is chronic rate for him. UTI did show proteus, sensitive for Fortaz. Was switched after culture report received. Lungs improved, minimal wheezing at this point. Will discharge home on Levaquin for coverage of pneumonia and UTI. Follow up with Dr. Curry in 10 days. - Patient Instructions Diet: Usual Diet as Tolerated Activity: As Tolerated Other/Special Instructions: Resume Ceftin after 10 day course of levaquin is completed - Discharge Plan *PRESCRIPTION DRUG MONITORING PROGRAM REVIEWED*: Not Applicable *COPY OF PRESCRIPTION DRUG MONITORING REPORT IN PATIENT [place]: Not Applicable Prescriptions/Med Rec: amLODIPine [Norvasc] 5 mg PO BEDTIME #30 tablet Levofloxacin [Levaquin] 500 mg PO DAILY #10 tablet Home Medications: Home Meds Acetaminophen [Tylenol Extra Strength] 500 mg PO Q4H PRN 09/21/14 [History] Donepezil HCl 10 mg PO BEDTIME 09/21/14 [History] LORazepam [Ativan] 0.5 mg PO Q6HR PRN 09/21/14 [History] Simvastatin 80 mg PO BEDTIME 09/21/14 [History] Fluticasone Propionate [Flovent] 2 spray ASTER BEDTIME 09/18/15 [History] Aspirin [Ecotrin EC] 81 mg PO DAILY #30 tablet. 09/20/15 [Rx] Pantoprazole [ProTONIX] 40 mg PO ACBREAKFAST #45 tab.cr 09/20/15 [Rx] Memantine HCl [Namenda Xr] 28 mg PO BEDTIME 02/02/16 [History] Budesonide/Formoterol Fumarate [Symbicort 160-4.5 Mcg Inhaler] 1 puff INH BID [History] Carbidopa/Levodopa [Carbidopa-Levo 25-100 MG ODT] 2 tab PO TID 05/12/17 [History ] Mirtazapine 15 mg PO BEDTIME 05/12/17 [History] Insulin Glarg,Human.Rec.Analog [Lantus] 25 unit SQ BEDTIME 06/26/17 [History] Allopurinol [Zyloprim] 100 mg PO DAILY 03/03/18 [History] Losartan Potassium 50 mg PO DAILY 03/03/18 [History] Tamsulosin HCl 0.4 mg PO DAILY 03/03/18 [History] traMADol [Ultram] 50 mg PO Q6H PRN 03/03/18 [History] Cefuroxime Axetil [Ceftin] 250 mg PO BEDTIME 11/27/18 [History] Gabapentin [Neurontin] 100 mg PO TID 11/27/18 [History] Tiotropium [Spiriva HandiHaler] 1 inh INH DAILY 11/27/18 [History] Levofloxacin [Levaquin] 500 mg PO DAILY #10 tablet 12/01/18 [Rx] amLODIPine [Norvasc] 5 mg PO BEDTIME #30 tablet 12/01/18 [Rx] Oxygen Therapy Mode: Nasal Cannula Patient Handouts: Urinary Tract Infection, Adult, Community-Acquired Pneumonia , Adult Forms: ED Department Discharge Referrals: Chance Curry MD [Primary Care Provider] - (Follow up with Dr. Curry in 10 days) - Discharge Summary/Plan Comment DC Time >30 min.: No - General Info Date of Service: 12/01/18 Admission Dx/Problem (Free Text: LLL Pneumonia UTI Functional Status: Reports: Pain Controlled, Tolerating Diet, Ambulating, Urinating - Review of Systems General: Reports: Weakness. Denies: Fever, Fatigue, Malaise HEENT: Reports: No Symptoms Pulmonary: Reports: Shortness of Breath, Cough Cardiovascular: Denies: Chest Pain, Edema, Lightheadedness Gastrointestinal: Denies: Abdominal Pain, Nausea, Vomiting Genitourinary: Reports: Frequency, Incontinence Musculoskeletal: Reports: No Symptoms Skin: Reports: No Symptoms Neurological: Reports: Confusion (oriented to person and place) - Patient Data Vitals - Most Recent: Last Vital Signs Temp 98.0 F 12/01/18 04:00 Pulse 65 12/01/18 04:00 Resp 20 12/01/18 04:00 BP 149/61 H 12/01/18 08:13 Pulse Ox 98 12/01/18 04:00 Weight - Most Recent: 232 lb 8 oz Lab Results - Last 24 hrs: Laboratory Results - last 24 hr 11/30/18 11/30/18 11/30/18 Range/Units 11:26 17:45 19:49 WBC (5.0-10.0) 10^3/uL RBC (4.50-6.00) 10^6/uL Hgb (14.0-18.0) g/dL Hct (40.0-54.0) % MCV (82.0-94.0) fL MCH (27.0-32.0) pg MCHC (33.0-38.0) g/dL RDW Coeff of Bharathi (11.0-15.0) % Plt Count (150-400) 10^3/uL Neut % (Auto) (35-85) % Lymph % (Auto) (10-55) % [place] % (Auto) (0-16) % Eos % (Auto) (0-5) % Baso % (Auto) (0-3) % Neut # (Auto) (1.80-7.00) 10^3/uL Lymph # (Auto) (1.00-4.80) 10^3/uL [place] # (Auto) (0.00-0.80) 10^3/uL Eos # (Auto) (0.00-0.45) 10^3/uL Baso # (Auto) 10^3/uL Sodium (136-145) mEq/L Potassium (3.5-5.0) mEq/L Chloride (98-106) mEq/L Carbon Dioxide (21-32) mmol/L BUN (7-18) mg/dL Creatinine (0.7-1.3) mg/dL Est Cr Clr Drug Dosing mL/min Estimated GFR (MDRD) (>=60) mL/min Glucose (75-99) mg/dL POC Glucose 238 H 236 H 228 H (75-105) mg/dl Calcium (8.4-10.1) mg/dL C-Reactive Protein (0.2-0.8) mg/dL 12/01/18 12/01/18 12/01/18 Range/Units 07:00 07:00 08:02 WBC 6.6 (5.0-10.0) 10^3/uL RBC 4.50 (4.50-6.00) 10^6/uL Hgb 13.5 L (14.0-18.0) g/dL Hct 42.3 (40.0-54.0) % MCV 94.0 (82.0-94.0) fL MCH 30.0 (27.0-32.0) pg MCHC 31.9 L (33.0-38.0) g/dL RDW Coeff of Bharathi 13.7 (11.0-15.0) % Plt Count 192 (150-400) 10^3/uL Neut % (Auto) 56.6 (35-85) % Lymph % (Auto) 27.4 (10-55) % [place] % (Auto) 7.9 (0-16) % Eos % (Auto) 7.8 H (0-5) % Baso % (Auto) 0.3 (0-3) % Neut # (Auto) 3.72 (1.80-7.00) 10^3/uL Lymph # (Auto) 1.80 (1.00-4.80) 10^3/uL [place] # (Auto) 0.52 (0.00-0.80) 10^3/uL Eos # (Auto) 0.51 H (0.00-0.45) 10^3/uL Baso # (Auto) 0.02 10^3/uL Sodium 143 (136-145) mEq/L Potassium 4.4 (3.5-5.0) mEq/L Chloride 108 H (98-106) mEq/L Carbon Dioxide 30 (21-32) mmol/L BUN 13 (7-18) mg/dL Creatinine 1.3 (0.7-1.3) mg/dL Est Cr Clr Drug Dosing 43.05 mL/min Estimated GFR (MDRD) 53 L (>=60) mL/min Glucose 201 H D (75-99) mg/dL POC Glucose 182 H (75-105) mg/dl Calcium 9.2 (8.4-10.1) mg/dL C-Reactive Protein 0.7 (0.2-0.8) mg/dL DEVAN Results - Last 24 hrs: Microbiology 11/27/18 11:28 Aerobic Blood Culture - Preliminary Blood - Venous NO GROWTH AFTER 3 DAYS Anaerobic Blood Culture - Preliminary NO GROWTH AFTER 3 DAYS 11/27/18 11:28 Aerobic Blood Culture - Preliminary Blood - Venous - Lab Draw NO GROWTH AFTER 3 DAYS Anaerobic Blood Culture - Preliminary NO GROWTH AFTER 3 DAYS Med Orders - Current: Current Medications Acetaminophen (Tylenol Extra Strength) 500 mg PO Q4H PRN PRN Reason: Pain/Fever Last Admin: 11/28/18 13:26 Dose: 500 mg Albuterol/Ipratropium (Duoneb 3.0-0.5 Mg/3 Ml) 3 ml NEB QIDRT [facility] Last Admin: 12/01/18 08:13 Dose: 3 ml Allopurinol (Zyloprim) 100 mg PO DAILY [facility] Last Admin: 12/01/18 08:14 Dose: 100 mg Amlodipine Besylate (Norvasc) 5 mg PO BEDTIME [facility] Last Admin: 11/30/18 19:34 Dose: 5 mg Aspirin (Halfprin) 81 mg PO DAILY [facility] Last Admin: 12/01/18 08:14 Dose: 81 mg Carbidopa/Levodopa (Sinemet 25-100 Mg) 2 tab PO TID [facility] Last Admin: 12/01/18 08:13 Dose: 2 tab Ceftazidime (Fortaz) 1 gm IVPUSH Q12H [facility] Last Admin: 12/01/18 08:33 Dose: 1 gm Donepezil HCl (Aricept) 10 mg PO BEDTIME [facility] Last Admin: 11/30/18 19:30 Dose: 10 mg Enoxaparin Sodium (Lovenox) 40 mg SUBCUT Q24H [facility] Last Admin: 11/30/18 13:08 Dose: 40 mg Fluticasone Propionate (Flonase) 0 gm ASTER BEDTIME [facility] Last Admin: 11/30/18 19:31 Dose: 2 spray Gabapentin (Neurontin) 100 mg PO TID [facility] Last Admin: 12/01/18 08:13 Dose: 100 mg Azithromycin 500 mg/ Sodium (Chloride) 250 mls @ 250 mls/hr IV Q24H [facility] Last Admin: 11/30/18 13:46 Dose: 250 mls/hr Insulin Glargine (Lantus Solostar) 25 units SUBCUT BEDTIME [facility] Last Admin: 11/30/18 19:51 Dose: 25 units Lorazepam (Ativan) 0.5 mg PO Q6H PRN PRN Reason: Anxiety Losartan Potassium (Cozaar) 50 mg PO DAILY [facility] Last Admin: 12/01/18 08:13 Dose: 50 mg Mirtazapine (Remeron) 15 mg PO BEDTIME [facility] Last Admin: 11/30/18 19:34 Dose: 15 mg Mometasone Furoate/Formoterol Fumar (Dulera 200-5 Mcg) 0 puff IH BID [facility] Last Admin: 12/01/18 08:13 Dose: 1 inhalation Memantine Xr 28 Mg (Own Med) 0 mg PO BEDTIME [facility] Last Admin: 11/30/18 19:33 Dose: 28 mg Pantoprazole Sodium (Protonix) 40 mg PO ACBREAKFAST [facility] Last Admin: 12/01/18 06:15 Dose: 40 mg Simvastatin (Zocor) 80 mg PO BEDTIME [facility] Last Admin: 11/30/18 19:35 Dose: 80 mg Tamsulosin HCl (Flomax) 0.4 mg PO DAILY [facility] Last Admin: 12/01/18 08:14 Dose: 0.4 mg Tiotropium [place] (Spiriva Handihaler) 18 mcg INH DAILY [facility] Last Admin: 12/01/18 08:18 Dose: 1 inhalation Tramadol HCl (Ultram) 50 mg PO Q6H PRN PRN Reason: Pain Discontinued Medications Albuterol/Ipratropium (Duoneb 3.0-0.5 Mg/3 Ml) 3 ml NEB Q4H PRN PRN Reason: Shortness Of Breath/wheezing Amlodipine Besylate (Norvasc) 2.5 mg PO BEDTIME [facility] Last Admin: 11/29/18 19:21 Dose: 2.5 mg Ceftriaxone Sodium (Rocephin) 2 gm IVPUSH ONETIME ONE Stop: 11/27/18 12:53 Last Admin: 11/27/18 14:03 Dose: 2 gm Ceftriaxone Sodium (Rocephin) 1 gm IVPUSH Q24H [facility] Last Admin: 11/30/18 11:35 Dose: 1 gm Sodium Chloride (Normal Saline) 1,000 mls @ 100 mls/hr IV ASDIRECTED [facility] Last Infusion: 11/27/18 14:20 Dose: 80 mls/hr Sodium Chloride (Normal Saline) 1,000 mls @ 80 mls/hr IV ASDIRECTED [facility] Last Admin: 11/28/18 20:12 Dose: 80 mls/hr Non-Formulary Medication (Carbidopa/Levodopa [Carbidopa-Levo 25-100 Mg Odt]) 2 tab PO TID [facility] - Exam Quality Assessment: Reports: Supplemental Oxygen General: Reports: Alert, Oriented (person and place) HEENT: Reports: Mucous Membr. Moist/[place] Neck: Reports: Supple Lungs: Reports: Decreased Breath Sounds, Wheezing Cardiovascular: Reports: Regular Rate, Regular Rhythm GI/Abdominal Exam: Normal Bowel Sounds, Soft, Non-Tender Extremities: Normal Inspection, No Pedal Edema Skin: Reports: Warm, Dry Neurological: Reports: No New Focal Deficit
[2018-12-01 14:44] VITALS: PULSE 66
== END 2018-12-01 10:25 | disposition home or self-care (01) | DRG 178 ==
LOC: CC.ED 11:12 → UNDOADMOB 12:52 → CC.MS 12:52 → INTOOBSV 12:52 → OBSVTOIN 12:52
PROVIDERS: ADMIT Nurse Practitioner; ATTEND Family Medicine
DX: J15.6 Pneumonia due to other Gram-negative bacteria (principal); N30.00 Acute cystitis without hematuria; Z51.5 Encounter for palliative care; J18.1 Lobar pneumonia, unspecified organism; R09.02 Hypoxemia; N30.01 Acute cystitis with hematuria; G47.33 Obstructive sleep apnea (adult) (pediatric); R73.9 Hyperglycemia, unspecified; I25.10 Atherosclerotic heart disease of native coronary artery without angina pectoris; I10 Essential (primary) hypertension; F03.90 Unspecified dementia, unspecified severity, without behavioral disturbance, psychotic disturbance, mood disturbance, and anxiety; H91.90 Unspecified hearing loss, unspecified ear; E78.00 Pure hypercholesterolemia, unspecified; B96.4 Proteus (mirabilis) (morganii) as the cause of diseases classified elsewhere; J44.9 Chronic obstructive pulmonary disease, unspecified; G47.30 Sleep apnea, unspecified; Z90.89 Acquired absence of other organs; Z98.42 Cataract extraction status, left eye; N32.81 Overactive bladder; Z79.51 Long term (current) use of inhaled steroids; M19.90 Unspecified osteoarthritis, unspecified site; G30.9 Alzheimer's disease, unspecified; Z98.41 Cataract extraction status, right eye; Z98.890 Other specified postprocedural states; F02.80 Dementia in other diseases classified elsewhere, unspecified severity, without behavioral disturbance, psychotic disturbance, mood disturbance, and anxiety; F32.9 Major depressive disorder, single episode, unspecified; F41.9 Anxiety disorder, unspecified; M10.9 Gout, unspecified; Z95.1 Presence of aortocoronary bypass graft; Z85.46 Personal history of malignant neoplasm of prostate; Z79.82 Long term (current) use of aspirin; Z79.4 Long term (current) use of insulin; Z79.899 Other long term (current) drug therapy
CPT/HCPCS: 36415; 51701; 71045; 80053; 81001; 82800; 83605; 85025; 86140; 87040 ×2; 87086; 87088; 87186; 93005; 93010; 96360; 99285; J7030; 36600; 73590-RT; 80048; 82962; 94640; 97110-GP; 97161-GP; A9270-GY; J0456; J0696; J0713; J1650; J1815-GY; J7050; J7620-GY